=== PATIENT | female | born 1960 | race Caucasian/White ===

== ENCOUNTER 2023-07-21 17:00 | Emergency (ER) | payer OTHER ==
[~2023-07-21] VITALS: Ht 152.4 cm; Wt 45.8 kg
[2023-07-21] MEDS ORDERED: CARBAMAZEPINE200 MG PO (20:36)
[2023-07-21] MEDS ORDERED: MAGNESIUM400 M1 PO (20:36)
[2023-07-21] MEDS ORDERED: AMITRIPTYLINE H10 MG PO (20:37)
[2023-07-21] MEDS ORDERED: LEVOTHYROXINE50 MC1 PO (20:37)
[2023-07-21 20:39] LABS: INFLUENZA B NAA NEGATIVE (NEGATIVE); RESPIRATORY SYNCYTIAL VIR NAA NEGATIVE (NEGATIVE)
[2023-07-21 21:06] LABS: BASOPHILS 0.4 % (0-2); EOSINOPHILS 1.5 % (0-6); HEMATOCRIT 42.1 % (35.0-50.0); LYMPHOCYTES 13.9 % (24-44); MCH 31.1 (27-36); MCHC 33.3 g/dl (30-36); MCV 93.4 fl (81-99); MONOCYTES 5.4 % (0-12); NEUTROPHILS 78.8 % (39-80); PLATELET COUNT 294 K/uL (140-440); RBC 4.51 M/ul (4.3-5.7); RDW 13.4 (10.5-15.0)
[2023-07-21 21:15] LABS: ALBUMIN 3.6 g/dL (3.4-5.0); ALBUMIN/GLOBULIN RATIO 1.03 (1.1-2.4); ANION GAP 9.1 (7-21); BILIRUBIN, TOTAL 0.4 ng/dL (0.2-1.0); BUN/CREATININE RATIO 27.27 (6.0-28.6); CALCIUM 8.8 mg/dL (8.5-10.1); CREATININE, SERUM 0.66 mg/dL (0.55-1.02); POTASSIUM 4.1 mmol/L (3.5-5.1); PROTEIN, TOTAL 7.1 g/dL (6.4-8.2)
[2023-07-21 22:07] VITALS: BP 131/74
== END 2023-07-21 22:13 | disposition short-term general hospital (02) ==
LOC: ED 17:00 → EDBD 17:01 → ED 22:13
PROVIDERS: Family Medicine
DX: S72.012A Unspecified intracapsular fracture of left femur, initial encounter for closed fracture (principal); W19.XXXA Unspecified fall, initial encounter; Z79.899 Other long term (current) drug therapy; Z20.822 Contact with and (suspected) exposure to COVID-19
CPT/HCPCS: 36415; 73502; 80053; 85025; 87502; 99285-25; A9270; C9803; U0002

== ENCOUNTER 2023-07-27 12:25 | Inpatient (IN) | payer OTHER ==
[~2023-07-27] VITALS: Ht 152.4 cm; Wt 46.0 kg
[~2023-07-27 12:25] MED LIST: AMITRIPTYLINE H10 MG PO; CARBAMAZEPINE200 MG PO; LEVOTHYROXINE50 MC1 PO; MAGNESIUM400 M1 PO
[2023-07-27 14:36] VITALS: BP 121/68
--- NOTE | 2023-07-27 14:47 | NUR ---
Patient arrives to [place]. Vitals taken, bed weight. Pt has no IV. Pt and her son talking to registered nurse hh case manager.
--- NOTE | 2023-07-27 14:57 | NUR ---
Spoke with Re and her son. Pt arrived from [facility] post surgery by ortho to swing bed. Visited with pt and son. Gave a brochure for swing bed and discussed pt is here for rehab. She will need to be dressed in street clothing daily and up for all meals. She will be seen by PT/OT/aids. Reminded she is here as a rehab pt, not a sick pt. Pt and son state understanding. Pt lives in an RV. She uses the bathroom in the RV park as it is handicap accessable. Pt states she walked two laps in her RV before she fell. She has an indwelling castellano catheter. She states she has had a catheter for 20+ years since she has had MS. Pt uses a walker, wc, and shower chair. Son lives with her and provides assistance. Pt would like to return to walking further distance with her walker and would like to be able to walk steps into her RV. Her son is working on low income housing for them. Spoke with PT and they will see pt this afternoon.
[2023-07-27] MEDS ORDERED: KESIMPTA P20 MG/0.4 SUB-Q (15:06)
[2023-07-27] MEDS ORDERED: DOCUSATE SODIU100 MG PO (15:53)
--- NOTE | 2023-07-27 16:57 | NUR ---
MED REC COMPLETE
--- NOTE | 2023-07-27 17:05 | NUR ---
PT IS A TRANSFER FROM [place]. PT CAME IN WITH A LEFT HIP SURGICAL PROCEDURE. DRESSING IS DRY CLEAN AND INTACT. INCISION IS 6CM. PT HAS ISSUES STANDING UP ON HER OWN. NEEDS ASSISTANCE WITH A FRONT WHEEL WALKER. SHE IS CURRENTLY SITTING UP IN HER CHAIR. PT STATES THAT SHE HAS NUMBNESS IN HER LOWER EXTREMETIES. GREAT PEDAL PULSES. PT STATED THAT SHES INTERESTED IN GETTING A FLU SHOT. PT ALSO HAS A SUPRAPUBIC CATH THAT GETS CHANGED ON THE 14TH OF EVERYMONTH. SHE IS ON A 60 G CARB DIET. SHE WORKED WITH PHYSICAL THERAPY AND GOT A EVAL. SKIN IS INTACT. NO BRUISES OR ABRASIONS. [place] [facility] [place]. NO OTHER CARES OR REQUESTS AT THIS TIME. CALL LIGHT WITHIN REACH
--- NOTE | 2023-07-27 17:06 | NUR ---
Received report from Gulshan dyson RN. Per report patient has allergies to "sulfa, sulfur, flagyl, hydrocodone and oxycodone", but received oxycodone with no adverse reactions with prior hospitalization. Patient states sometimes gets "constipation", educated regarding side effects of medication vs. allergies. Patient states not necessary to add the pain medications to allergy list at this time.
--- NOTE | 2023-07-27 20:01 | NUR ---
Patient up in chair watching TV, no complaints, no distress noted, report provided by barbara RN, patient with call light in reach.
[2023-07-27 21:55] VITALS: BP 115/55
--- NOTE | 2023-07-28 00:18 | NUR ---
PATIENT SLEEPING IN CHAIR AND WANTS TO STAY THERE, GIVEN A BLANKET, LIGHTS OUT, DENIES ANY NEEDS, APPEARS COMFORTABLE, CALL LIGHT IN REACH.
--- NOTE | 2023-07-28 02:24 | NUR ---
PATIENT REMAINS A SLEEP IN CHAIR, APPEARS COMFORTABLE, NO DISTRESS AND CALL LIGHT WITHIN REACH.
--- NOTE | 2023-07-28 04:50 | NUR ---
Patient continues resting, no distress noted, appears comfortable, call light in reach.
--- NOTE | 2023-07-28 06:25 | NUR ---
Patient slept tonight in recliner, no complaints, no distress, given am medications and quickly went back to sleep. lights out, call light within reach.
--- NOTE | 2023-07-28 07:23 | NUR ---
VERBAL REPORT RECEIVED FROM GENESIS ZULETA. PT AWAKE AND ALERT, SIT RECLINED IN RECLINER. REPORTS 6/10 ACHING PAIN IN LEFT HIP. REQUEST TYLENOL.
--- NOTE | 2023-07-28 07:43 | NUR ---
PT ALERT AND ORIENTED TO SELF AND TIME ONLY.
--- NOTE | 2023-07-28 07:43 | NUR ---
TYLENOL RECIEVED ORDERED FOR PAIN, SEE eMAR. PHYSICAL ASSESSMENT COMPLETE. NEW SHIRT DONNED. PT SITS UP IN RECLINER, CALL LIGHT IN REACH. NO REQUESTS AT THIS TIME.
[2023-07-28 10:06] VITALS: BP 108/42
--- NOTE | 2023-07-28 11:51 | NUR ---
PT SITS UP IN RECLINER, TALKS ON PHONE, CALL LIGHT IN REACH, NO REQUESTS AT THIS TIME.
--- NOTE | 2023-07-28 13:06 | NUR ---
PT SPILLED COFFEE, REQUESTED MORE COFFEE AND TO HAVE HER CHICKEN CUT UP. COFFEE CLEANED UP, NEW COFFEE PROVIDED CHICKEN CUT UP TO PT PRFERENCE. PT ABLE TO FEED HER SELF WITH HER RIGHT HAND ALTHOUGH HER DEXTERITY IS LIMITED BY NUMBNESS.
--- NOTE | 2023-07-28 13:56 | NUR ---
PT EATS 100% OF HER LUNCH. PT ASSISTED TO BED FOR SUPRAPUBIC CATHETER CHANGE. PT TRANSFERS TO BED WITH 1 PERSON ASSIST. FLUID REMOVED FROM CATHETER BALLOON, CATHETER REMOVED, TIP INTACT. SITE PREPARED WITH STERILE TECHNIQUE, NEW 16F HAGEN CATHETER INSERTED, URINE RETURN NOTED, CATHETER ADVANCED 2CM, BALLOON FILLED WITH 10CC OF NS AND SEEDED. CATHETER SECURED TO RIGHT THIGH PER PT PREFERENCE. PT TOLERATED PROCEDURE WELL. PT ASSISTED TO SEMIFOWLERS, CALL LIGHT AND BELONGINGS IN REACH, NO REQUESTS AT THIS TIME. PT WATCHES TV. URINE DRAINS INTO CLOSED SYSTEM COLLECTION BAG.
--- NOTE | 2023-07-28 14:59 | NUR ---
PT STATES SHE FELT DIZZY AND BELIEVES THIS IS RELATED TO HER TEGRETOL. BECASUSE OF THIS PT ONLY TAKES 200MG AT 1500 INSTEAD OF THE ORDERED 300MG DOSE WHICH SHE DID CONFIRM IS THE SAME AMOUNT THAT SHE USUALLY TAKES. PT DENIES DIZZINESS AT THIS TIME. SON IN ROOM VISITING.
--- NOTE | 2023-07-28 17:03 | NUR ---
PT SITS UP IN BED, AWAKE AND ALERT, TALKS ON CELL PHONE. CALL LIGHT IN REACH, NO REQUESTS AT THIS TIME.
--- NOTE | 2023-07-28 18:31 | NUR ---
PT SITS UP IN BED, FINISHED DINNER, 100%, TOLERATES THIS WELL. SON IN ROOM VISITING. CALL LIGHT IN REACH NO REQUESTS AT THIS TIME.
--- NOTE | 2023-07-28 19:10 | NUR ---
SHIFT REPORT RECEIVED FROM LITZY AGUIRRE AT BEDSIDE. pt AWAKE AND RESTING IN BED, SON ALSO IN ROOM. pt DENIES NEEDS OR CONCERNS VERBALIZED, CALL LIGHT IN REACH. SUPRAPUBIC CATHETER PATENT, WNL.
[2023-07-28 20:31] VITALS: BP 101/60
--- NOTE | 2023-07-28 20:35 | NUR ---
INTO DO PATIENTS VITALS. PATIENT CURRENTLY WATCHING TV RESTING. WATER REFILLED. CALL LIGHT WITHIN REACH. PATIENT DENIES ANY OTHER CARES.
--- NOTE | 2023-07-28 22:15 | NUR ---
ASSESSMENT COMPLETE, SCHEDULED MEDS GIVEN-SEE EMAR. pt AWAKE AND RESTING IN BED. DENIES PAIN, DIZZINESS, SOB-ECT. ALSO DENIES NAUSEA. pt A/OX4, BED ALARM ON FOR SAFETY. DRESSING TO LEFT HIP WNL, INTACT WITH SCANT RED SPOT LIKE SHADOWING, OLD IN NATURE/COLOR. SITE AROUND DRESSING WNL. CATH CARE DONE, NO FURTHER NEEDS OR CONCERNS. CALL LIGHT IN REACH.
--- NOTE | 2023-07-28 23:29 | NUR ---
pt RESTING IN BED, EYES CLOSED. ON RA, RR EVEN AND UNLABORED, NO DISTRESS NOTED. BED ALRM ON ADN CALL LIGHT IN REACH.
--- NOTE | 2023-07-29 00:48 | NUR ---
pt RESTING ON HER RIGHT SIDE IN BED, ON RA. RR EVEN AND UNLABORED. NO DISTRESS NOTED. CALL LIGHT IN REACH AND BED ALARM ON FOR SAFETY.
--- NOTE | 2023-07-29 01:00 | NUR ---
pt RECEIVED FLU VACCINE EARLIER ON DAYSHIFT PER EMAR, EMAR UPDATED AND FLU VACCINE DC'D PER PROTOCOL.
--- NOTE | 2023-07-29 01:35 | NUR ---
rounded on pt, pt resting quietly in bed with eyes closed. on ra, rr even and unlabored. pt awoke to voice, states calmy-"sometimes when i'm asleep, i forget where i'm at". pt a/o to all but by date. vs remain stable, hr remains a little tachy. call light inr each, pt denies pain. also denies needing assistance with position changes. call light in reach and castellano emptied.
[2023-07-29 01:38] VITALS: BP 103/52
--- NOTE | 2023-07-29 03:50 | NUR ---
bed alarm going off, pt just turning self in bed, able to turn independently. prn med given for constipation, austen care done and clean attends in place. small skin tear noted to right buttocks, site cleaned with wound cleanser and allevyn in place. photo consent taken and photos obtained, see chart. pt allows pillow to be placed under left side for comfort, hip alignment obtained. no bleeding noted from skin tear, appears older in nature. deneis additional needs, call light in reach.
--- NOTE | 2023-07-29 05:31 | NUR ---
scheduled thyroid medication given-see emar. i&o's collected. bed alarm on and call light in reach. pt removed pillow from hip, turns self in bed independently.
--- NOTE | 2023-07-29 07:09 | NUR ---
VERBAL REPORT RECEIVED FROM GENESIS DURBIN. PT RESTS IN BED WITH EYES CLOSED RESP EVEN AND UNLABORED.
--- NOTE | 2023-07-29 09:03 | NUR ---
VERBAL ORDERS FROM DR KINGSTON TO REMOVE PTS SURGICAL DRESSING AND SHOWER PRN. ORDERS ENTERED, REPEAT BACK PERFORMED.
--- NOTE | 2023-07-29 09:30 | NUR ---
PATIENT IN RECLINER, VITALS AND I/O'S COMPLETED. HAGEN DRAINED AND DOCUMENTED. PT HAS NO OTHER REQUESTS AT THIS TIME, CALL LIGHT WITHIN REACH.
[2023-07-29 09:34] VITALS: BP 119/53
--- NOTE | 2023-07-29 11:58 | NUR ---
DISCUSSED WITH PT NO BM SINCE 07/24/23. PT REPORTS SHE REGULARLY GOES DAY WITHOUT A BM. STATES SHE SOMETIMES USES PRUNE JUICE TO ACHIEVE A BM. PRUNE JUICE PROVIDED.
--- NOTE | 2023-07-29 15:24 | NUR ---
DRESSING OVER LEFT UPPER ANTERIOR THIGH REMOVED. INCISION WELL APPROXIMATED, BRISA INTACT NO DRAINAGE NOTED. INCISION CLEANSED WITH NS AND PATTED DRY. LIBBY WOUND SKIN PINK, DRY AND INTACT. PT TOLERATED WELL.
--- NOTE | 2023-07-29 17:41 | NUR ---
THIS RN TO PT ROOM TO OFFER SHOWER AFTER DINNER. PT STATES "NO I DON'T WANT TO RIGHT NOW, I AM TIRED" WITH EYES CLOSED AND LAYING BACK IN CHAIR. PT STATES NO FURTHER NEEDS AT THIS TIME, CALL LIGHT WITHIN REACH.
--- NOTE | 2023-07-29 18:25 | NUR ---
HOURLY ROUNDING. THIS RN CAME INTO ROOM, PT RESTING WITH EYES CLOSED AND LEANING FAR TO RIGHT SIDE IN CHAIR. PT AWAKENS TO TOUCH, STATES "I NEED TO USE THE BATHROOM AND THEN I WOULD LIKE TO GO TO BED". PT OFFERED A SHOWER AGAIN, PT REFUSED. PT UP TO BSC WITH X1 PERSON ASSIST AND FWW. PT HAS LARGE BM, SMALL BM IN BRIEFS. NEW BRIEFS PROVIDED, LIBBY CARE PROVIDED. PT AMBULATES X2 ASSIST WITH FWW BACK TO BED. PT STATES NO FURTHER NEEDS AT THIS TIME. CALL LIGHT WITHIN REACH, BED RAILS UP.
--- NOTE | 2023-07-29 18:32 | NUR ---
IN WITH PT AND RN CAYETANO TO ASSIST PT BACK TO BED. PT REPORTS NAUSEA AND FEELING HOT. COOL WASH CLOTH APPLIED TO PT'S FOREHEAD. PO ZOFRAN ADMINISTERED SL PER EMAR. CALL LIGHT IN REACH.
--- NOTE | 2023-07-29 19:31 | NUR ---
REPORT RECEIVED FROM DAY SHIFT RN. PT RESTING IN BED. FAMILY AT BEDSIDE. SAFETY PRECAUTIONS MAINTAINED. CALL LIGHT WITHIN REACH. WILL CONTINUE TO MONITOR.
[2023-07-29 20:21] VITALS: BP 135/65
--- NOTE | 2023-07-29 20:33 | NUR ---
PT ASSESSED AND MEDICATIONS GIVEN. SUPRAPUBIC CATHETER IN PLACE, DRAINING WELL PER GRAVITY, GOOD OUTPUT NOTED. LEFT HIP SITE INTACT. PT'S SON AT BEDSIDE. SAFETY PRECAUTIONS MAINTAINED. CALL LIGHT WITHIN REACH. WILL CONTINUE TO MONITOR.
--- NOTE | 2023-07-30 06:05 | NUR ---
PT RESTED WELL THROUGHOUT THE SHIFT. VSS. PT SBA WITH WALKER. SUPRAPUBIC CATHETER IN PLACE. GOOD OUTPUT NOTED. SAFETY PRECAUTIONS MAINTAINED. CALL LIGHT WITHIN REACH. WILL CONTINUE TO MONITOR.
--- NOTE | 2023-07-30 07:11 | NUR ---
VERBAL REPORT RECEIVED FROM GENESIS ROSAS. PT RESTS IN BED WITH EYES CLOSED, RESP EVEN AND UNLABORED.
--- NOTE | 2023-07-30 09:20 | NUR ---
Faxed auth sheet to Trisha in admitting. Faxed reference sheet, H&P with admit date, PT eval, plan of care, and notes, CM eval, and RN eval to Jonathan at [facility] as requested.
--- NOTE | 2023-07-30 10:30 | NUR ---
Spoke with Re. She states she is doing well. She is weak and states her BP is low. She feels this rehab program is working well for her.
[2023-07-30 10:44] VITALS: BP 86/54
[2023-07-30 10:50] VITALS: BP 93/38
--- NOTE | 2023-07-30 10:50 | NUR ---
PATIENT SITTING UP IN CHAIR. VITALS AND I&O'S CHARTED. LINENS CHANGED. BP LOW, RN NOTIFIED. CALL LIGHT IN REACH. NO FURTHER NEEDS AT THIS TIME.
--- NOTE | 2023-07-30 11:43 | NUR ---
JASE KUHN REPORTS BP LA 86/54 AND RA 93/38. MANNUAL BP TAKEN WITH DOPPLER. LA 101/65, RA 100/60. PT ASYMPTOMATIC. HX OF BP'S REVIEWED PT RUNS SBP 100-110S OVER DBP 50-60'S WITH OCCASIONAL SBP 120-130'S.
--- NOTE | 2023-07-30 12:11 | NUR ---
PT UP IN CHAIR. IN GOOD SPIRITS. I EXERCISED MINISTRY OF PRESENCE PT TALKED OF BECKIE HISTORY AND HOPES FOR WORLD HEALING. STATED SHE WAS TIRED FROM PT AND APPRECIATIVE OF HELP TO HEAL. PRAYED FOR AWARENESS OF DIVINE PRESENCE AND RELEIF FROM DISCOMFORT.
--- NOTE | 2023-07-30 14:00 | NUR ---
PATIENT SITTING UP IN CHIAR WATCHING TV AT THIS TIME. I&O'S CHARTED. CALL LIGHT IN REACH. NO FURTHER NEEDS AT THIS TIME.
[2023-07-30 14:27] VITALS: BP 106/46
--- NOTE | 2023-07-30 16:22 | NUR ---
PT SITS UP IN RECLINER, WATCHES TV, VISITS WITH SON IN ROOM. SP HAGEN CATHETER DRAINS CLEAR, YELLOW URINE. CALL LIGHT IN REACH, NO REQUESTS AT THIS TIME.
--- NOTE | 2023-07-30 18:26 | NUR ---
PATIENT SITTING UP IN CHAIR WATCHING TV. I&O'S CHARTED. CALL LIGHT IN REACH. NO FURTHER NEEDS AT THIS TIME.
--- NOTE | 2023-07-30 19:34 | NUR ---
REPORT RECEIVED FROM DAY SHIFT RN. PT SITTING IN CHAIR. SAFETY PRECAUTIONS MAINTAINED. CALL LIGHT WITHIN REACH. WILL CONTINUE TO MONITOR.
[2023-07-30 20:33] VITALS: BP 115/58
--- NOTE | 2023-07-30 20:48 | NUR ---
PT ASSESSED AND MEDICATIONS GIVEN. PT TRANSFERRED BACK TO BED. PT UP X1 WITH WALKER. SUPRAPUBIC CATHETER IN PLACE. GOOD OUTPUT NOTED. VSS. SAFETY PRECAUTIONS MAINTAINED. CALL LIGHT WITHIN REACH. WILL CONTINUE TO MONITOR.
--- NOTE | 2023-07-31 06:02 | NUR ---
PT RESTED WELL DURING THE SHIFT. PT UP X1 WITH WALKER. VSS. SUPRAPUBIC CATHETER INTACT AND DRAINING WELL PER GRAVITY. GOOD OUTPUT NOTED. SAFETY PRECAUTIONS MAINTAINED. CALL LIGHT WITHIN REACH. WILL CONTINUE TO MONITOR.
--- NOTE | 2023-07-31 07:11 | NUR ---
VERBAL REPORT RECEIVED FROM GENESIS CHATMAN.
--- NOTE | 2023-07-31 07:16 | NUR ---
PT SUPINE IN BED, AWAKE, DROWSY, STATES SHE WOULD LIKE TO CONTINUE TO REST. CALL LIGHT IN REACH, NO REQUESTS AT THIS TIME.
[2023-07-31 09:22] VITALS: BP 101/56
--- NOTE | 2023-07-31 09:26 | NUR ---
PATIENT IN BED RESTING WITH EYES CLOSED. VITALS AND I&O'S CHARTED. CALL LIGHT IN REACH. NO FURHTER NEEDS AT THIS TIME.
--- NOTE | 2023-07-31 10:24 | NUR ---
PT RESTS IN BED, STATES SHE WOULD LIKE TO TAKE A NAP. SHOWER OFFERED PT STATES SHE WOULD LIKE TO DO THAT LATER. CALL LIGHT IN REACH, NO REQUESTS AT THIS TIME.
--- NOTE | 2023-07-31 13:55 | NUR ---
PATIENT WORKING WITH OT AT THIS TIME. I&O'S CHARTED. CALL LIGHT IN REACH. NO FURTHER NEEDS AT THIS TIME.
--- NOTE | 2023-07-31 16:18 | NUR ---
Spoke with pt. She states she worked with PT and OT today. She is tearful. She denies anyone upset her and then states its from watching a sad show. She feels she is doing well with therapy. Updated pt their will be and IDT meeting on and he son is invited to discuss goals of care if he would like to be here at 9 am. Spoke with PT/OT and reminded I will need documentation to send to request further auth by tomorrow or . Betty stated pt was tearful when she worked with her and pt had stated she was "overwhelmed".
--- NOTE | 2023-07-31 18:30 | NUR ---
PATIENT SITTING UP IN CHAIR WATCHING TV. I&O'S CHARTED. CALL LIGHT IN REACH. NO FURTHER NEEDS AT THIS TIME.
--- NOTE | 2023-07-31 19:05 | NUR ---
REPORT RECEIVED FROM GENESIS AGUIRRE. pt UP IN CHAIR WITH EYES CLOSED, BREATHING UNLABORED. NO DISTRESS NOTED.
--- NOTE | 2023-07-31 19:25 | NUR ---
RESUME PATIENT CARE FROM GALINA KUHN. ASSISTED PATIENT FROM CHAIR TO BED USING WALKER. ICE WATER REFRESHED. DENIES FURTHER NEEDS AT THIS TIME.
[2023-07-31 21:39] VITALS: BP 104/55
--- NOTE | 2023-07-31 22:02 | NUR ---
pt RESTING IN BED AWAKE. ASSESSMENT COMPLETE. pt DENIES PAIN. VS STABLE. pt PROVIDED WITH SNACK AND ICE WATER. CALL LIGHT IN REACH.
--- NOTE | 2023-08-01 | NUR ---
pt RESTING IN BED WITH EYES CLOSED, SNORING. LIGHTS OFF IN ROOM. CALL LIGHT AND PERSONAL SUPPLIES IN REACH.
--- NOTE | 2023-08-01 02:46 | NUR ---
pt RESTING IN BED WITH EYES CLOSED. BREATHING EQUAL AND UNLABORED. LIGHTS OFF IN ROOM.
--- NOTE | 2023-08-01 06:00 | NUR ---
pt SLEEPING, SNORING. HEAD COVERED WITH BLANKETS BY pt. NO DISTRESS NOTED.
--- NOTE | 2023-08-01 06:57 | NUR ---
pt SLEEPING, AWAKENS TO VOICE. pt RATES PAIN 6/10, PRN PAIN MEDICATION ADMINISTERED. SUPRAPUBIC CATHETER EMPTIED. CALL LIGHT IN REACH. WARM BLANKET PROVIDED.
--- NOTE | 2023-08-01 07:32 | NUR ---
recieved shift report from rn. patient is currently resting. even and unlabored breathing noticed. no cares needed at this time . call light within reach
[2023-08-01 08:00] VITALS: BP 105/58
--- NOTE | 2023-08-01 08:30 | NUR ---
Update with Dr. Mclaughlin in 08 meeting. Discussed with team, pt has been tearful intermittently. PT and OT states pt has been tearful at therapy workouts at times. plans on seeing pt today.
--- NOTE | 2023-08-01 08:43 | NUR ---
PTY IS CURRENTLY IN BED EATING BREAKFAST. PT STATES HER PAIN LEVEL IS AT A 2 AFTER PAIN MEDS WERE GIVEN THIS MORNING. ASSESSMENT COMPLETE. NO ABNORMAL FINDINGS. PT IS ON RA AND A+O. NO OTHER CARES NEEEDED OR REQUESTED AT THIS TIME. CALL LIGHT WITHIN REACH
--- NOTE | 2023-08-01 10:10 | NUR ---
Pt resting in chair. Denies needs. Feeling better today.
--- NOTE | 2023-08-01 10:34 | NUR ---
PT IS IN BED WATCHING TV WHEN ASKED IF SHE NEEDED ANYTHING PT STATED SHE WAS FINE. NO OTHER CARES NEEDED AT THIS TIME CALL LIGHT WITHIN REACH
--- NOTE | 2023-08-01 11:19 | NUR ---
PATIENT IS ON A REGULAR DIET. SHE DOES NOT HAVE ANY CHEWING OR SWALLOWING PROBLEMS. APPETITE IS GOOD. SHE DOES NOT EAT PORK DUE TO ALEVISM REASONS. SHE STATES SHE HAS AN ALLERGY TO SULFUR SO SHE CANNOT TOLERATE EGGS ON THEIR OWN BUT CAN EAT FOODS MADE WITH EGGS. THESE ARE NOTED IN THE MEAL IQ. I PROVIDED HER WITH A REGULAR DIET MENU SINCE SHE DIDN'T HAVE THE CORRECT MENU IN HER ROOM. SHE HAS NO OTHER NUTRITION QUESTIONS OR CONCERNS AT THIS TIME.
--- NOTE | 2023-08-01 11:19 | NUR ---
PT IS CURRENTLY IN ROOM WITH PHYSICAL THERAPY. THERAPIST HAD CONCERNS ABOUT PT BP. WILL CONTINUE TO MONITOR.
--- NOTE | 2023-08-01 11:42 | NUR ---
PHYSICAL THERAPIST CAME TO REPORT THAT PT STATES SHE WAS FEELING DROWSY AND "DRUNK" POSSIBLY RELATED TO MEDICATION GIVEN. AFTER ASESSING THE SITUATION ZOFRAN WAS GIVEN.
--- NOTE | 2023-08-01 11:46 | NUR ---
UPDATED DR ON PATIENT STATUS. DR SAID HE WILL REVIEW HER CURRENT ORDERS
--- NOTE | 2023-08-01 14:53 | NUR ---
PT IS WITH OT GETTING A SHOWER.
--- NOTE | 2023-08-01 15:45 | NUR ---
PER PATIENT REQUEST PATIENT STATED SHE DOES NOT WANT HER TEGRITOL. SEE EMAR
--- NOTE | 2023-08-01 17:00 | NUR ---
PT HAS A 5 CM BLANCHABLE ERYTHEMA ON RIGHT BUTTOCK. THIS RN REAPPLIED ALEVYN. PT IS CURRENTLY EATING. NO OTHER CARES REQUESTED OR CONCERNS AT THIS TIME CALL LIGHT WITHIN REACH
--- NOTE | 2023-08-01 17:28 | NUR ---
PATIENT HERE FOR TRANSITIONAL CARE PROGRAM FOLLOWING POST OP L HIP FX ON 07/22. MAIN GOALS: PT/OT, PAIN MANAGEMENT. HX OF MS WITH CHRONIC R SIDED WEAKNESS, TRIGEMINAL NEURALGIA, CHRONIC MEDS. A+O, ON ROOM AIR, LUNGS CLEAR, BOWEL TONES ACTIVE. PT STATES LAST BM 07/29, DECLINES BM REGIMEN. 1PA WITH FWW. L HIP HAS 4 BRISA CARLEY, C/D/I, WELL APPROXIMATED WITH NO DRAINAGE. R SIDE BUTTOCK HAS 5CM ERYTHEMA, BLANCHABLE, ALLEVYN COVERING CHANGED 08/01. CHRONIC SUPRAPUBIC CATHETER D/T MS, CHANGED 07/28. PRN OXY AND TYLENOL FOR PAIN. NO IV ACCESS. PLAN TO DC HOME WITH SON. CALLS APPROPRIATELY.
--- NOTE | 2023-08-01 19:22 | NUR ---
PATIENT UP IN CHAIR WATCHING TV. I&O'S CHARTED. CALL LIGHT IN REACH. NO FURTHER NEEDS AT THIS TIME.
--- NOTE | 2023-08-01 19:25 | NUR ---
patient up in chair watching TV, no complaints, Report provided by dayshisalbador RN. Call light within reach.
[2023-08-01 20:28] VITALS: BP 112/53
--- NOTE | 2023-08-01 21:26 | NUR ---
Patient without complaints of pain, CMS to lower legs bilat intact, incision to outer thigh of left leg intact with carissa, dry, clean. SP cath intact. patient watching TV and up in recliner. VSS, call light within reach.
--- NOTE | 2023-08-01 22:06 | NUR ---
Called to room and assisted patient to bed from chair, gait unsteady and slow, only requiring SBA, Has lights out and call light in reach.
--- NOTE | 2023-08-02 00:56 | NUR ---
patient appears a sleep, appears comfortable, lights out and call light in reach.
--- NOTE | 2023-08-02 01:57 | NUR ---
patient awake, having difficulty falling back a sleep. no complaints of pain, no noted distress, lights out, call light in reach.
--- NOTE | 2023-08-02 04:12 | NUR ---
Patient lying with eyes closed, appears comfortable, no distress, RR-[id number]. call light in reach.
--- NOTE | 2023-08-02 05:42 | NUR ---
Patient sleeping between care. No complaints, Has required no pain medication, SP cath intact draining QS urine. Left outer thigh incision remains intact with carissa. CMS intact. Has had no c/o dizziness this shift. Has been a/o. Wanting to go back to sleep, lights out and call light in reach.
--- NOTE | 2023-08-02 07:34 | NUR ---
RECEIVED REPORT FROM RN WOUND CARE RN. PATIENT IS RESTING IN BED WITH EYES CLOSED AND RESPIRATIONS EVEN AND UNLABORED.
--- NOTE | 2023-08-02 09:59 | NUR ---
EXERCISED MINISTRY OF PRESENCE PT TALKED OF HOBBIES AND INTERESTS. PROVIDED WORD PUZZLE BOOKS. PRAYED SILENTLY FOR HINDU AND ABIDING PEACE.
--- NOTE | 2023-08-02 10:50 | NUR ---
PATIENT IS GETTING OUT OF BED WITH PT AND STATED NO NEEDS AT THIS TIME.
--- NOTE | 2023-08-02 11:31 | NUR ---
UR NOTE: REQUEST FOR SWINGBED AUTH EXTENSION SENT BY [employer] TO ADEEL Roberto [phone] AND [facility] REQUEST LINE [phone]. SENT UPDATED CHART NOTES. CONFIRMED 104PM AND 103PM.
--- NOTE | 2023-08-02 11:48 | NUR ---
PATIENT SITTING UPRIGHT IN THE RECLINER. ASKED HOW PT WENT AND PATIENT STATING "IT WAS HARDER THAN I THOUGHT IT WOULD BE". PATIENT SAID SHE WAS ABLE TO WALK TO THE HALLWAY AND SIT IN A WHEELCHAIR USING A WALKER AND PT AT PATIENTS SIDE. PATIENT SAID SHE WAS ABLE TO DO SOME STAIRS BUT WAS STRUGGLING TO LIFT HER LEG. PATIENT HAVING 4/10 PAIN THAT FEELS ACHEY AND SHE WOULD LIKE PAIN MEDICATION IF THAT IS AVAILABLE. PATIENT GOT FRESH WATER AND STATED NO FURTHER NEEDS AT THIS TIME. PATIENT CALL LIGHT AND PERSONAL BELONGINGS WITHIN REACH.
[2023-08-02 12:12] VITALS: BP 109/48
--- NOTE | 2023-08-02 13:10 | NUR ---
PATIENT SITTING UPRIGHT IN THE RECLINER WATCHING TV. PATIENT MEAL TRAY CLEARED. PATIENT STATED NO FURTHER NEEDS AT THIS TIME. CALL LIGHT AND PERSONAL BELONGINGS ARE WITHIN REACH.
--- NOTE | 2023-08-02 16:51 | NUR ---
PATIENT SITTING UPRIGHT IN RECLINER. PATIENT STATED SHE WAS SNIFFLING FREQUENTLY AND KLEENEX BOX WAS PLACED ON HER BEDSIDE TABLE. WHEN ASKED ABOUT PAIN, PATIENT STATED SHE IS EXPERIENCING 0/10 PAIN. PATIENT STATED NO FURTHER NEEDS AT THIS TIME. CALL LIGHT AND PERSONAL BELONGINGS ARE WITHIN REACH.
--- NOTE | 2023-08-02 19:25 | NUR ---
PATIENT UP IN CHAIR, WATCHING TV, APPEARS COMFORTABLE WITH NO COMLAINTS, REPORTED PROVIDED BY YUE RN, PATIENT CALL LIGHT WITHIN REACH.
[2023-08-02 20:10] VITALS: BP 120/66
--- NOTE | 2023-08-02 20:45 | NUR ---
PATIENT ASSISTED TO BED BY LAUNDRY OR DRY CLEANERS COUNTER CLERK, GAIT UNSTEADY, MILD DICOMFORT TO HIP RATED AT 2 AND GIVEN TYLENOL. INCISION TO LEFT OUTER THIGH INTACT WITH BRISA AND OPEN TO AIR. CMS TO LOWER EXTREMETIES BILAT INTACT. VSS, PATIENT WANTING TO GO TO SLEEP, NIGHTTIME NEDICATINS GIVEN, LIGHTS OUT AND CALL LIGHT IN REACH.
--- NOTE | 2023-08-02 23:32 | NUR ---
PATIENT RESTING WITH EYES CLOSED, NO DISTRESS, APPEARS COMFORTABLE, CALL LIGHT IN REACH.
--- NOTE | 2023-08-03 02:00 | NUR ---
Patient sleeping with eyes closed, no distress noted, call light in reach.
--- NOTE | 2023-08-03 04:41 | NUR ---
Patient continues to sleep, slight snore with respirations, appears comfortable, lights out and call light within reach.
--- NOTE | 2023-08-03 06:16 | NUR ---
Patient continues sleeping with eyes closed, no complaints, no distress, slept through the night, call light in reach.
--- NOTE | 2023-08-03 07:30 | NUR ---
REPORT FROM [facility] TEACHER RN. PATIENT LAYING IN BED WITH EYES CLOSED. RESPIRATIONS ARE EQUAL AND UNLABORED. CALL LIGHT AND PERSONAL BELONGINGS ARE WITHIN REACH.
[2023-08-03 09:08] VITALS: BP 112/56
--- NOTE | 2023-08-03 10:12 | NUR ---
PATIENT WORKING WITH OT. NOW SITTING UPRIGHT IN THE RECLINER. PATIENT REQUESTING A SENNOSIIDE TABLET TO HELP HAVE A BOWEL MOVEMENT. PATIENT STATED NO FURTHER NEEDS AT THIS TIME.
--- NOTE | 2023-08-03 10:46 | NUR ---
UR NOTE: RECEIVED EXTENDED AUTH REF#[id number] EXTENDED TO 14 DAYS 07/26/23-08/10/23.
--- NOTE | 2023-08-03 12:54 | NUR ---
PATIENT SITTING UP IN THE RECLINER AFTER EATING 100% OF LUNCH. PATIENT STATED THEY WERE IN NO PAIN AND IS VERY TIRED AFTER WORKING WITH OT THIS MORNING. PATIENT STATED THEY WERE STILL FEELING CONSTIPATED AFTER BEING GIVEN SENNA THIS MORNING. PATIENT STATED NO FURTHER NEEDS AT THIS TIME. PATIENT CALL LIGHT AND PERSONAL BELONGINGS ARE WITHIN REACH.
--- NOTE | 2023-08-03 14:19 | NUR ---
PATIENT SITTING UPRIGHT IN THE RECLINER. FINISHED WITH PT. PATIENT HAD ONE MEDIUM BOWEL MOVEMENT. 750 ML OF PALE YELLOW URINE EMPTIED FROM THE HAGEN BAG. PATIENT STATED NO PAIN. PATIENT INCISION SITE ON LEFT HIP WAS DRY AND EDGES APPROXIMATED. PATIENT STATED NO FURTHER NEEDS AT THIS TIME. PATIENT CALL LIGHT AND PERSONAL BELONGINGS WITHIN REACH.
--- NOTE | 2023-08-03 17:50 | NUR ---
PATIENT SITTING UPRIGHT IN THE RECLINER WITH PATIENTS SONS AT BEDSIDE. PATIENT SUPRAPUBIC CATHETER EMPTIED OF 500 ML OF YELLOW URINE. PATIENT NOW EATING DINNER. PATIENT STATED NO FURTHER NEEDS AT THIS TIME. PATIENT CALL LIGHT AND PERSONAL BELONGINGS ARE WITHIN REACH.
[2023-08-03 19:56] VITALS: BP 120/62
--- NOTE | 2023-08-03 19:57 | NUR ---
pATIENT SITTING UP IN RECLINER, REPORT PROVIDED BY DAY SHIFT RN, PATIENT DENIES PAIN, VSS, L OUTER THIGH INCISION INTACT, AND DRY WITH BRISA. CMS INTACT, CONTINUES TO HAVE SIGNIFICANT WEAKNESS TO LOWER LEGS. SP CATH INTACT AND FRAINING CLEAR YELLOW URINE, ASSISTED PATIENT WITH USE OF FWW TO BED. AMBULATED SHORT DISTANCE AND GAIT VERY UNSTEADY. IS IN BED NOW WATCHING TV, CALL LIGHT IN REACH.
--- NOTE | 2023-08-03 22:04 | NUR ---
PATIENT RESTING WITH EYES CLOSED, APPEARS COMFORTABLE, CALL LIGHT WITHIN REACH.
--- NOTE | 2023-08-04 00:36 | NUR ---
Patient continues to sleep, appears comfortable, no distress, RR-18, call light within reach.
--- NOTE | 2023-08-04 01:59 | NUR ---
PATIENT CONTINUES SLEEPING, RESP EVEN UNLABORED WITH AUDIBLE LIGHT SNORE, APPEARS COMFORTABLE, CALL LIGHT IN REACH.
--- NOTE | 2023-08-04 04:04 | NUR ---
Patient sleeping, appears comfortable, has had no complaints. call light in reach.
--- NOTE | 2023-08-04 05:47 | NUR ---
patient has slept well through the night, no complaints of pain, no noted distress, left leg incision intact and dry, CMS intact. Woke for morning medication and quickly back to sleep. call light in reach.
--- NOTE | 2023-08-04 07:19 | NUR ---
RECEIVED REPORT FROM E M ASSEMBLER RN. PATIENT RESTING WITH EYES CLOSED. BREATHING IS EVEN AND UNLABORED.
[2023-08-04 08:02] VITALS: BP 101/48
--- NOTE | 2023-08-04 08:59 | NUR ---
PATIENT HELPED BAACK TO THE RECLINER AFTER HAVING A BOWEL MOVEMENT. PATIENTS MORNING MEDICATIONS GIVEN BUT SHE REQUESTED TO TAKE THE SENNA TABLET THIS EVENING. PATIENT HAS ALEVYN ON RIGHT BUTTOCK. PATIENT ASSESSMENT COMPLETE. PATIENT EXPERIENCING WEAKNESS ON THE RIGHT UPPER AND LOWER EXTREMITITES. PATIENT EXPRESSED SHE THINKS SHE MAY BE EXPERIENCING AN MS FLAIR UP DUE TO THE STRESS OF THE LEFT HIP FRACTURE. PATIENT STATED PAIN ON THE LEFT HEEL BUT THAT HAPPENS VERY FREQUENTLY. PATIENT DID NOT WANT ANY PAIN MEDICATIONS BECAUSE IT MAKES HER DROWSY. PATIENT STATED NO FURTHER NEEDS AT THIS TIME. CALL LIGHT AND PERSONAL BELONGINGS ARE WITHIN REACH.
[2023-08-04 15:38] LABS: BASOPHILS 0.6 % (0-2); EOSINOPHILS 1.7 % (0-6); HEMATOCRIT 38.7 % (35.0-50.0); LYMPHOCYTES 22.3 % (24-44); MCHC 33.6 g/dl (30-36); MONOCYTES 6.4 % (0-12); PLATELET COUNT 459 K/uL (140-440); RBC 4.07 M/ul (4.3-5.7); RDW 14.1 (10.5-15.0)
[2023-08-04 16:01] LABS: ALBUMIN 3.5 g/dL (3.4-5.0); ALBUMIN/GLOBULIN RATIO 1.06 (1.1-2.4); ANION GAP 7.4 (7-21); BILIRUBIN, TOTAL 0.3 ng/dL (0.2-1.0); CALCIUM 8.8 mg/dL (8.5-10.1); CREATININE, SERUM 0.75 mg/dL (0.55-1.02); POTASSIUM 4.4 mmol/L (3.5-5.1); PROTEIN, TOTAL 6.8 g/dL (6.4-8.2)
--- NOTE | 2023-08-04 17:46 | NUR ---
PATIENT SITTING UPRIGHT IN THE RECLINER. PATIENT STATED NO PAIN. PATIENT WITH MALDOROUS YELLOW URINE FROM THE SUPRAPUBIC CATHETER. MD NOTIFIED AND NO NEW ORDERS AT THIS TIME. PATIENT STATED NO FURTHER NEEDS AT THIS TIME. CALL LIGHT AND PERSONAL BELONGINGS ARE WITHIN REACH.
[2023-08-04 17:53] VITALS: BP 131/57
--- NOTE | 2023-08-04 17:54 | NUR ---
PATIENT ASSISTED BACK TO BED WITH FRONT WHEELED WALKER AND TWO PERSON ASSIST. VITAL SIGNS TAKEN. PATIENT STATED NO FURTHER NEEDS AT THIS TIME. CALL LIGHT AND PERSONAL BELONGINGS ARE WITHIN REACH.
--- NOTE | 2023-08-04 19:46 | NUR ---
REPORT RECEIVED FROM DAY SHIFT RN. PT LYING IN BED ALERT AND ORIENTED. DENIES NEEDS. WHITE BOARD UPDATED. CALL LIGHT IN REACH.
[2023-08-04 20:34] VITALS: BP 115/68
--- NOTE | 2023-08-04 21:12 | NUR ---
EVENING ASSESSMENT COMPLETE. SCHEDULED MEDS ADMIN PER EMAR. PT DENIES PAIN OR NAUSEA. VS AND I&O OBTAINED, WNL. SUPRAPUBIC CATH PATENT WITH QS YELLOW URINE. FOUL ODOR AND SEDIMENT NOTED. LEFT HIP INCISION WELL APPROXIMATED WITH BRISA INTACT. NO REDNESS OR DRAINAGE NOTED. ASSISTED TO REPOSITION IN BED. PT DENIES QUESTIONS OR CONCERNS. CALL LIGHT IN REACH.
--- NOTE | 2023-08-05 00:07 | NUR ---
CALL LIGHT ANSWERED. PT SPILLED COFFEE ON LINENS. CLEAN LINENS PROVIDED. ASSISTED PT TO REPOSITION. NO FURTHER NEEDS.
--- NOTE | 2023-08-05 03:21 | NUR ---
PT RESTING IN BED WITH EYES CLOSED. RESPIRATIONS EVEN. CALL LIGHT IN REACH.
--- NOTE | 2023-08-05 06:04 | NUR ---
PT RESTING IN BED SNORING SOFTLY. EYES CLOSED. RESPIRATIONS EVEN. I&O OBTAINED. SUPRAPUBIC CATH PATENT WITH QS YELLOW URINE. FOUL ODOR AND SEDIMENT NOTED.
--- NOTE | 2023-08-05 07:30 | NUR ---
RECEIVED REPORT FROM HUMAN RESOURCES OFFICE ASSISTANT RN. PATIENT IS LYING IN BED AWAKE AND ALERT. PATIENT STATED NO FURTHER NEEDS AT THIS TIME. CALL LIGHT AND PERSONAL BELONGINGS ARE WITHIN REACH.
[2023-08-05 10:37] VITALS: BP 120/59
--- NOTE | 2023-08-05 11:15 | NUR ---
PATIENT SITTING COMFORTABLY IN THE HOSPITAL BED. PATIENT WATCHING TV. WATER FILLED. VITALS SIGNS, INTAKE AND OUTPUT, AND PATIENT ASSESSMENT COMPLETE. PATIENT STATED NO FURTHER NEEDS AT THIS TIME. CALL LIGHT AND PERSONAL BELONGINGS ARE WITHIN REACH.
--- NOTE | 2023-08-05 13:23 | NUR ---
PATIENT SITTING UPRIGHT IN THE RECLINER AND WATCHING TV. PATIENT STATED NO FURTHER NEEDS AT THIS TIME. CALL LIGHT AND PERSONAL BELONGINGS WITHIN REACH.
--- NOTE | 2023-08-05 16:15 | NUR ---
PATIENT SITTING UPRIGHT IN THE RECLINER WATCHING TV. CARBEMAZEPIME ADMINISTERED PER ORDER ON THE EMAR. PAIN ASSESSMENT SHOWED 0/10. WHEN ASSESSING THE SURGICAL SITE, IT SHOWED FOUR BRISA AND WELL APPROXIMATED MARGINS. INTAKE AND OUTPUT RECORDED. PATIENT STATED NO FURTHER NEEDS AT THIS TIME. CALL LIGHT AND PERSONAL BELONGINGS ARE WITHIN REACH.
--- NOTE | 2023-08-05 19:37 | NUR ---
REPORT RECEIVED FROM DAY SHIFT RN. PT SITTING IN RECLINER ALERT AND ORIENTED. 2PA WITH FWW BACK TO BED. GAIT WEAK. PT DENIES FURTHER NEEDS. WHITE BOARD UPDATED. CALL LIGHT IN REACH.
[2023-08-05 20:16] VITALS: BP 100/54
--- NOTE | 2023-08-05 20:32 | NUR ---
EVENING ASSESSMENT COMPLETE. SCHEDULED MEDS ADMIN PER EMAR. PT DENIES PAIN OR NAUSEA. SUPRAPUBIC CATH PATENT WITH YELLOW URINE. FOULD ODOR NOTED. INCISION TO LEFT HIP WELL APPROXIMATED WITH FOUR BRISA INTACT. NO REDNESS OR DRAINAGE NOTED. PT DENIES QUESTIONS OR CONCERNS. CALL LIGHT IN REACH.
--- NOTE | 2023-08-06 00:23 | NUR ---
PT RESTING IN BED WITH EYES CLOSED. RESPIRATIONS EVEN. CALL LIGHT IN REACH.
--- NOTE | 2023-08-06 03:22 | NUR ---
PT RESTING IN BED WITH EYES CLOSED. RESPIRATIONS EVEN. CALL LIGHT IN REACH.
--- NOTE | 2023-08-06 05:33 | NUR ---
PT RESTING WITH EYES CLOSED. AWAKENS EASILY. I&O OBTAINED, WNL. SCHEDULED MEDS ADMIN PER EMAR. PT REPORTS SHE IS RESTING COMFORTABLY. DENIES NEEDS. CALL LIGHT IN REACH.
--- NOTE | 2023-08-06 07:26 | NUR ---
RECIEVED SHIFT REPORT FROM NURSE. PT IS CURRENTLY SLEEPING. EVEN UNLABORED BREATHING NOTED. CALL LIGHT WITHIN REACH.
--- NOTE | 2023-08-06 07:49 | NUR ---
REPORT RECEIVED FROM GENESIS BERRY. PT RESTING WITH EYES CLOSED.
--- NOTE | 2023-08-06 08:47 | NUR ---
PATIENT UP TO CHAIR FOR BREAKFAST, 1PA FWW. PATIENT DID WELL AMBULATING TO CHAIR. LINENS CHANGED. CALL LIGHT IN REACH. NO FURHTER NEEDS AT THIS TIME.
--- NOTE | 2023-08-06 09:41 | NUR ---
CHECKING ON PT. REMOVED TRAY AND ROSES FROM BEDSIDE TABLE PER REQUEST. PT SITTIN GUP IN CHAIR AND DENIES ANY CONCERNS. GIVEN MORE COFFEE.
[2023-08-06 09:53] VITALS: BP 108/40
--- NOTE | 2023-08-06 10:19 | NUR ---
PT IS CURRENTLY UP IN HER CHAIR WATCHING TV. ASSESSMENT DONE. NO ABNORMAL FINDINGS. PT INCISION CLEAN DRY INTACT WITH NO DISCOLORATIONS. LUNG SOUNDS CLEAR. NO OTHER CARES ARE NEEDED OR REQUESTED AT THIS TIME CALL LIGHT WITHIN REACH
--- NOTE | 2023-08-06 11:21 | NUR ---
PT IS WITH OT. JUST FINISHED SHOWERING AND NOW WORKING ON ADL'S. PT STATES SHE HAS PAIN IN HER HIP. WHEN OFFERED PAIN MEDICATION PT STATES SHE DOES NOT WANT ANYTHING. NO OTHER CARES ARE NEEDED OR REQUESTED AT THIS TIME. CALL LIGHT WITHIN REACH
--- NOTE | 2023-08-06 13:51 | NUR ---
PATIENT SITTING UP IN CHAIR TALKING ON PHONE TO FAMILY. I&O'S CHARTED. CALL LIGHT IN REACH. NO FURTHER NEEDS AT THIS TIME.
--- NOTE | 2023-08-06 14:58 | NUR ---
PATIENT IS SITTING IN A CHAIR KNITTING. PATIENT'S PT/OT IS GOING WELL PER PATIENT.CM WILL CONTINUE TO MONITOR PATIENT FOR IMPROVEMENT.
--- NOTE | 2023-08-06 15:35 | NUR ---
PT IS CURRENTLY SIITING UP IN HER CHAIR. WHEN ASKED IF SHE NEEDED ANYTHING PT STATED NO. NO CONCERNS AT THIS TIME. CALL LIGHT WITHIN REACH
--- NOTE | 2023-08-06 18:57 | NUR ---
PATIENT BACK TO BED FROM CHAIR, 1PA FWW. PATIENT TOLERATED TRANSFER WELL. I&O'S CHARTED. CALL LIGHT IN REACH. NO FURTHER NEEDS AT THIS TIME.
--- NOTE | 2023-08-06 19:13 | NUR ---
REPORT RECEIVED FROM DAY SHIFT RN. PT LYING IN BED WITH EYES CLOSED. RESPIRATIONS EVEN. CALL LIGHT IN REACH. WHITE BOARD UPDATED.
[2023-08-06 19:57] VITALS: BP 100/58
--- NOTE | 2023-08-06 21:09 | NUR ---
PT RESTING WITH EYES CLOSED. AWAKENS EASILY. VS AND I&O OBTAINED. EVENING ASSESSMENT COMPLETE. SCHEDULED MEDS ADMIN PER EMAR. PRN FOR CONSTIPATION ADMIN PER REQUEST. PT C/O COCCYX PAIN. UP TO CHAIR WITH 2PA AND FWW TO PLACE WAFFLE MATTRESS. ALLEVYN DRESSING IN PLACE ON RIGHT BUTTOCK. PT BACK TO BED, SIMIN FAIR. SUPRAPUBIC CATH PATENT WITH YELLOW URINE. ODOR NOTED. ASSISTED PT TO REPOSITION IN BED. PT DENIES QUESTIONS OR CONCERNS. CALL LIGHT IN REACH.
--- NOTE | 2023-08-07 00:11 | NUR ---
PT RESTING IN BED WITH EYES CLOSED. RESPIRATIONS EVEN. CALL LIGHT IN REACH.
--- NOTE | 2023-08-07 04:15 | NUR ---
PT RESTING IN BED WITH EYES CLOSED. RESPIRATIONS EVEN. CALL LIGHT IN REACH.
--- NOTE | 2023-08-07 06:24 | NUR ---
PT RESTING WITH EYES CLOSED. AWAKENS EASILY. SHEDULED MEDS ADMIN PER EMAR. I&O OBTAINED. SUPRAPUBIC CATH PATENT WITH QS YELLOW URINE. ODOR NOTED. WARM BLANKET PROVIDED. NO FURTHER NEEDS.
--- NOTE | 2023-08-07 07:40 | NUR ---
RECEIVED REPORT FROM CONSULTING DATABASE ADMINISTRATOR RN. PATIENT RESTING WITH EYES CLOSED. RESPIRATIONS ARE EVEN AND UNLABORED. PATIENT CALL LIGHT AND PERSONAL BELONGINGS ARE WITHIN REACH.
--- NOTE | 2023-08-07 08:30 | NUR ---
Pt. was discussed in 8:30 meeting with and PT/OT. PT states concern as pt is unstable when attempting to do stairs. Pts distance for walking has been improving daily. Pt.s goal is to walk 2 steps into RV with assist from son. PT has requested son to visit tomorrow to practice steps and to attend the IDT meeting.
[2023-08-07 09:22] VITALS: BP 113/62
--- NOTE | 2023-08-07 11:30 | NUR ---
Spoke with pt and she feels she is improving. She is stating she would like to go home by the end of the week. She still has a goal of walking steps into the RV. Therapy will cont. to work towards this goal.
--- NOTE | 2023-08-07 12:30 | NUR ---
Updated from PT, pt was able to walk 50 ft today.
--- NOTE | 2023-08-07 12:53 | NUR ---
PATIENT IS UP IN CHAIR AND SLEEPING.
--- NOTE | 2023-08-07 18:10 | NUR ---
PATIENT ATE 90% OF DINNER, ENDORSES FEELING DIZZY AT THIS TIME AND ALSO ENDORSES THAT THIS IS A USUAL OCCURANCE AND SHE FEELS THAT THIS IS RELATED TO HER MS. I/O ARE COMPLETE.
--- NOTE | 2023-08-07 19:25 | NUR ---
REPORT RECEIVED FROM DAY SHIFT RN. PT SITTING IN RECLINER ALERT AND ORIENTED. DENIES NEEDS. WHITE BOARD UPDATED. CALL LIGHT IN REACH.
--- NOTE | 2023-08-07 19:51 | NUR ---
PT BACK TO BED WITH 2PA AND FWW. GAIT WEAK. ASSISTED TO REPOSITION IN BED. NO FURTHER NEEDS AT THIS TIME. CALL LIGHT IN REACH.
[2023-08-07 22:16] VITALS: BP 117/46
--- NOTE | 2023-08-07 22:42 | NUR ---
EVENING ASSESSMENT COMPLETE. SCHEDULED MEDS ADMIN PER EMAR. PT DENIES PAIN OR NAUSEA. DENIES DIZZINESS AT THIS TIME. VS AND I&O OBTAINED. SUPRAPUBIC CATH PATENT WITH QS YELLOW URINE. LEFT HIP INCISION WELL APPROXIMATED WITH BRISA INTACT. NO REDNESS OR DRAINAGE NOTED. ASSISTED PT TO REPOSITION IN BED. PT DENIES QUESTIONS OR CONCERNS. CALL LIGHT IN REACH.
--- NOTE | 2023-08-08 01:17 | NUR ---
PT RESTING IN BED WITH EYES CLOSED. RESPIRATIONS EVEN. CALL LIGHT IN REACH.
--- NOTE | 2023-08-08 04:15 | NUR ---
PT RESTING IN BED WITH EYES CLOSED. RESPIRATIONS EVEN. CALL LIGHT IN REACH.
--- NOTE | 2023-08-08 05:56 | NUR ---
PT RESTING IN BED. AWAKENS EASILY. SCHEDULED MEDS ADMIN PER EMAR. I&O OBTAINED. WARM BLANKET PROVIDED. PT REPORTS SHE IS RESTING WELL. DENIES NEEDS.
--- NOTE | 2023-08-08 08:30 | NUR ---
Pt discussed in 8:[address] Moyer, PT, and CM. I was notified pt as a follow up appt tomorrow with her orthopedic surgeon. Discussed we can schedule [facility] transport and Dr./Pt can sign a Temporary Absense from facility form. Pt. can go to her scheduled appt. Per PT, pts son plans on riding with her. I will speak with pt and get the time for the appt and set up transport.
--- NOTE | 2023-08-08 09:50 | NUR ---
Spoke with Re as she has stated different days she wants to dc to PT and to CM. Pt now stating she would like to stay through Sunday. She states she is feeling much better following her own medication for her MS, brought in by her son yesterday. Pt states concern if she leaves Sunday she will lose the progress she has made in the last two days.
--- NOTE | 2023-08-08 10:00 | NUR ---
In and spoke with pt. She states her son has set up her transport and has the time for the appt. She is unsure which Dr. her appt is with. I will call her son and clarify. Called and spoke with son, Wade. He states he over slept and did not make it in this am to work with PT and his mom on the stairs. He states he thinks moms appt was yesterday with the surgeon and possibly with [facility] today or tomorrow. He states he has to get off the phone as he has scheduled [facility] transport today and he needs to cancel. He will be in later.
--- NOTE | 2023-08-08 10:10 | NUR ---
PT WORKING WITH PHYSICAL THERAPY.
--- NOTE | 2023-08-08 10:15 | NUR ---
I called and checked with [facility]. Pts surgeon was Dr. Jeferson Kruse, Orthopedics. I was transfered to their office and spoke with Wendy. Pt does not have any fu appts scheduled. I let her know pt will dc from our swingbed program on Sunday at the pts request. She scheduled the pt for a FU appt on Aug 15, 2023 at 2:15. Their address is [facility], [address] [place] [address]. Phone number [phone]. I will let the son know of the scheduled appt for next week. She will call back with orders if the wants her carissa removed or if they can wait until next week.
--- NOTE | 2023-08-08 10:45 | NUR ---
PT SITTING IN CHAIR, JUST FINISHED WITH PHYSICAL THERAPY. PT STATES SHE HAS MILD PAIN AFTER PHYSICAL THERAPY BUT DENIES NEED FOR PAIN MEDICATION. ASSESSMENT COMPLETED. PT ON ROOM AIR, DENIES SOB. BOWEL TONES ACTIVE. SUPRAPUBIC CATH DRAINING YELLOW URINE. PT WITH HX OF MS, RIGHT LEG WEAKER THAN LEFT, PULSES STONG, WITHOUT EDEMA. PT DENIES OTHER NEEDS AT THIS TIME. DISCUSSED PLAN OF CARE WITH PT.
[2023-08-08 11:00] VITALS: BP 117/44
--- NOTE | 2023-08-08 11:33 | NUR ---
CURTAIN PULLED. DID NOT DISTURB. PRAYED FOR RASTAFARI OF STRENGTH AND ONGOING BLESSING.
--- NOTE | 2023-08-08 13:18 | NUR ---
PT SITTING IN CHAIR, WATCHING TV, PT DENIES NEEDS AT THIS TIME.
--- NOTE | 2023-08-08 14:20 | NUR ---
Received a return call from Wendy at Dr. Kruse's office. She states he would like the carissa removed and like and XRAY of her femur. I gave them our fax number and she will fax a written order when completed.
--- NOTE | 2023-08-08 16:34 | NUR ---
PT SITTING IN CHAIR, ASSISTED TO REPOSITION. GIVEN AFTERNOON MEDICATION PER EMAR. FRESH WATER PROVIDED. PT DENIES OTHER NEEDS AT THIS TIME.
--- NOTE | 2023-08-08 18:08 | NUR ---
PT WITH GOOD PROGRESS TODAY. PT ON ROOM AIR, LUNG SOUNDS CLEAR. TOLERATED REGULAR DIET. DENIES NEED FOR PAIN MEDICATION, JUST A LITTLE SORE AFTER WORKING WITH PHYSICAL THERAPY. PT WITH OUT IV. SUPRAPUBIC CATH CONTINUES TO HAVE MALODOROUS URINE. HX OF MS, CONTINUES TO HAVE RIGHT SIDED WEAKNESS BUT WAS BLE TO WORK WITH PHYSICAL THERAPY AND DO STAIRS. PLAN FOR PT TO FOLLOW UP WITH SURGEON TOMORROW AND THEN DISCHARGE ON SUNDAY.
--- NOTE | 2023-08-08 20:16 | NUR ---
patient up in chair watching TV and awaiting her son's arrival. no compliants, report provided by barbara HURTADO, patien with call light in reach.
[2023-08-08 20:28] VITALS: BP 122/48
--- NOTE | 2023-08-08 20:29 | NUR ---
Patient assisted to bed, SBA with use of FWW. toelrated well, still weak in lower legs, VSS. call light in reach.
--- NOTE | 2023-08-08 23:10 | NUR ---
Patient resting with eyes closed, appears comfortable, RR=18, call light within reach.
--- NOTE | 2023-08-09 00:51 | NUR ---
Patient appears a sleep, appears comfortable, rr-18. call light within reach.
--- NOTE | 2023-08-09 02:15 | NUR ---
Patient continues to sleep with little snore noted, no distress, appears comfortable, call light within reach.
--- NOTE | 2023-08-09 04:14 | NUR ---
patient continues to sleep comfortable, no noted distress, lights are out and call light within reach.
--- NOTE | 2023-08-09 06:07 | NUR ---
Patient has slept through the night without complaints, call light in reach. No c/o discomfort.
--- NOTE | 2023-08-09 07:10 | NUR ---
Orders were on my fax machine from Dr. Kruse when I arrived. Orders taken to Ev Yang RN.
--- NOTE | 2023-08-09 08:05 | NUR ---
REPORT RECEIVED, ALL QUESTIONS ANSWERED. PT RESTING IN BED WITH EYES CLOSED, RESPIRATIONS EVEN AND UNLABORED. CALL LIGHT IN REACH.
--- NOTE | 2023-08-09 08:30 | NUR ---
PATIENT AWAKE IN BED, VITALS CHARTED, HAGEN EMPTIED. RN AT BEDSIDE. CALL [facility] IN REACH.
--- NOTE | 2023-08-09 09:10 | NUR ---
Met with pt and IDT team to discuss goals. Son had planned on working with pt yesterday and attending the meeting. Son did not arrive. Pt called him on her cell so he could listen to the meeting. Pt is near to meeting goals and dc. Pt plans on dc to RV on Sunday. PT would like son to visit and walk stairs with pt as this is pts goal to enter her RV and walk up the steps with minimal assist from son. Son states he will be in by 10:30 to work with mom. See IDT assessment.
--- NOTE | 2023-08-09 09:20 | NUR ---
SURGICAL BRISA REMOVED PER MD ORDER. 4 BRISA IN TOTAL REMOVED. PT TOLERATED WELL. INCISION REMAINS WELL APPROXIMATED, NO REDNESS, SWEELING OR DRAINAGE NOTED. PT DENIES FURTHER NEEDS AT THIS TIME. CALL LIGHT IN REACH.
[2023-08-09 09:22] VITALS: BP 111/59
--- NOTE | 2023-08-09 10:36 | NUR ---
PT UP WORKING WITH PHYSICAL THERAPY.
--- NOTE | 2023-08-09 11:20 | NUR ---
PT SITTING UP IN RECLINER. SON AT BEDSIDE. DENIES NEEDS AT THIS TIME. CALL LIGHT IN REACH.
--- NOTE | 2023-08-09 12:00 | NUR ---
PT C/O CONSTIPATION, LAST BM CHARTED 08/05. PT GIVEN PRN SENNA, PROVIDED EDUCATION ON MEDICATION AND CONSTIPATION. PT VERBALIZED UNDERSTANDING WITH NO FURTHER QUESTIONS. DENIES FURTHER NEEDS AT THIS TIME. CALL LIGHT IN REACH, SON AT BEDSIDE.
--- NOTE | 2023-08-09 14:15 | NUR ---
PATIENT SITTING UP IN RECLINER FINISHED WITH LUNCH AND WATCHING TV. HAGEN EMPTIED AND I&OS CHARTED. FRESH ICE WATER PROVIDED. CALL LIGHT IN EASY REACH, ROOM TIDIED, NO OTHER NEEDS AT THIS TIME.
--- NOTE | 2023-08-09 15:21 | NUR ---
PT SITTING UP IN RECLINER. WATCHING TV. REPOSITIONED IN CHAIR. SCHEDULED MEDICATIONS GIVEN, SEE EMAR. PT DENIES FURTHER NEEDS AT THIS TIME. CALL LIGHT IN REACH.
--- NOTE | 2023-08-09 19:38 | NUR ---
REPORT RECEIVED FROM DAY SHIFT RN. PT RESTING IN CHAIR. SAFETY PRECAUTIONS MAINTAINED. CALL LIGHT WITHIN REACH. WILL CONTINUE TO MONITOR.
[2023-08-09 20:01] VITALS: BP 127/69
--- NOTE | 2023-08-09 20:12 | NUR ---
PT ASSESSED AND MEDICATIONS GIVEN. PT ASSISTED BACK TO BED. SUPRAPUBIC CATHETER IN PLACE DRAINING WELL PER GRAVITY. SAFETY PRECAUTIONS MAINTAINED. CALL LIGHT WITHIN REACH. WILL CONTINUE TO MONITOR.
--- NOTE | 2023-08-10 06:07 | NUR ---
PT RESTED WELL DURING THE SHIFT. VSS. [place]ICK AND CHANGED, GOOD OUTPUT NOTED. SAFETY PRECAUTIONS MAINTAINED. CALL LIGHT WITHIN REACH. WILL CONTINUE TO MONITOR.
--- NOTE | 2023-08-10 06:11 | NUR ---
PT RESTED WELL DURING THE SHIFT. SUPRAPUBIC CATHETER IN PLACE, GOOD OUTPUT NOTED. VSS. SAFETY PRECAUTIONS MAINTAINED. CALL LIGHT WITHIN REACH. WILL CONTINUE TO MONITOR.
--- NOTE | 2023-08-10 07:33 | NUR ---
recieved report from nurse. pt is currently sleeping. chest rise with even and unlabored breathing seen. no other cares needed at this time. call light within reach
[2023-08-10 10:06] VITALS: BP 124/52
--- NOTE | 2023-08-10 10:30 | NUR ---
PT IS CURRENTLY IN BED WATCHING TV. ASSESSMENT COMPLETE AND MEDS GIVEN. NO ABNORMAL FINDINGS. PT IS IN NO PAIN. VITALS ARE STABLE. NO OTHER CARES NEEDED OR REQUESTED ATTHIS TIME. CALL LIGHT WITHIN REACH
--- NOTE | 2023-08-10 11:29 | NUR ---
PT SITTING IN CHAIR. STATES DOING WELL. DENIES NEEDS AT THIS TIME. DECLINED PRAYER IN ROOM. PRAYED FOR CONTINUED HEALING FROM OUTSIDE ROOM.
--- NOTE | 2023-08-10 13:00 | NUR ---
Spoke with Re. She cont. to plan for dc to home on Sunday. Discussed I need to give her a Letter of Discharge 24 hrs before discharge. I don't work weekends. She is agreement to sign as she states this is her plan and she is leaving on Sunday. I gave her the SB survey and I completed the letter of notification to the [facility]. I will fax on Sunday.
--- NOTE | 2023-08-10 13:02 | NUR ---
UR NOTE: RECEIVED FAX FROM [facility] WITH [employer] REF#[id number] DATES 07/27/23-08/16 20 NIGHTS
--- NOTE | 2023-08-10 13:45 | NUR ---
PT CALED TTO GET ASSISTANCE TO THE RESTROOM. PT WAS ABLE TO GET UP ON HER OWN WITH THE FWW AND WALK WITHOUT HELP TO THE COMMODE.
--- NOTE | 2023-08-10 14:53 | NUR ---
CHANGED PATIENT'S BED LINENS.
--- NOTE | 2023-08-10 19:26 | NUR ---
AFTER I DID HER INTAKE AND OUTPUT. SO BEFORE I LEFT PATIENT'S ROOM SHE WANTED TO GO TO BED. SO HER AND WALKED TO HER BED. PATIENT USED HER WALKER. PATIENT IS IN BED. ASKED HER IF SHE NEEDED ANYTHING ELESE AND SHE SAID NO.
--- NOTE | 2023-08-10 19:30 | NUR ---
REPORT RECEIVED FROM DAY SHIFT RN. PT SITTING IN CHAIR. SAFETY PRECAUTIONS MAINTAINED. CALL LIGHT WITHIN REACH. WILL CONTINUE TO MONITOR.
[2023-08-10 20:04] VITALS: BP 114/64
--- NOTE | 2023-08-10 20:08 | NUR ---
PT ASSESSED AND MEDICATIONS GIVEN. SUPRAPUBIC CATHETER IN PLACE, DRAINING WELL PER GRAVITY. VSS. PT ASSISTED TO BED. SAFETY PRECAUTIONS MAINTAINED. CALL LIGHT WITHIN REACH. WILL CONTINUE TO MONITOR.
--- NOTE | 2023-08-11 06:00 | NUR ---
PT RESTED WELL DURING THE SHIFT. SUPRAPUBIC CATHETER INTACT, GOOD OUTPUT NOTED. VSS. PT UP X1 WITH WALKER. SAFETY PRECAUTIONS MAINTAINED. CALL LIGHT WITHIN REACH. WILL CONTINUE TO MONITOR.
--- NOTE | 2023-08-11 07:02 | NUR ---
VERBAL REPORT RECEIVED FROM GENESIS ROSAS. PT RESTS IN BED WITH EYES CLOSED, RESP EVEN AND UNLABORED.
[2023-08-11 10:29] VITALS: BP 111/40
--- NOTE | 2023-08-11 14:18 | NUR ---
PT REPORTS SHE NEEDS A NEW STATLOCK FOR HER SP CATHETER. NOTED STATLOCK ON RLE IS BROKEN AND NO LONGER SECURING SP TUBE. OLD STATLOCK REMOVED, NEW STATLOCK PLACED, SECURES SP TUBE TO RLE. NO FURTHER REQUESTS AT THIS TIME.
--- NOTE | 2023-08-11 19:38 | NUR ---
REPORT RECEIVED FROM DAYS SHIFT RN. PT SITTING IN CHAIR. SAFETY PRECAUTIONS MAINTAINED. CALL LIGHT WITHIN REACH. WILL CONTINUE TO MONITOR.
[2023-08-11 20:06] VITALS: BP 102/59
--- NOTE | 2023-08-11 20:16 | NUR ---
PT ASSESSED AND MEDICATIONS GIVEN. PT ASSISTED BACK TO BED. SUPRAPUBIC CATHETER IN PLACE, DRAINING WELL PER GRAVITY. VSS. SAFETY PRECAUTIONS MAINTAINED. CALL LIGHT WITHIN REACH. WILL CONTINUE TO MONITOR.
--- NOTE | 2023-08-12 06:04 | NUR ---
PT RESTED WELL DURING THE SHIFT. VSS. SUPRAPUBIC CATHETER INPLACE, DRAINING WELL PER GRAVITY. GOOD OUTPUT NOTED. SAFETY PRECAUTIONS MAINTAINED. CALL LIGHT WITHIN REACH. WILL CONTINUE TO MONITOR.
--- NOTE | 2023-08-12 07:01 | NUR ---
VERBAL REPORT RECIEVED FROM GENESIS ROSAS. PT RESTS IN BED WITH EYES CLOSED, RESP EVEN AND UNLABORED.
[2023-08-12 10:11] VITALS: BP 122/91
[2023-08-12 14:30] VITALS: BP 112/50
--- NOTE | 2023-08-12 19:15 | NUR ---
REPORT RECEIVED FROM GENESIS AGUIRRE. pt UP IN CHAIR. TANK SETTER IN ROOM TO ASSIST pt TO BED AT THIS TIME.
[2023-08-12 21:44] VITALS: BP 99/55
--- NOTE | 2023-08-12 21:52 | NUR ---
pt AWAKE RESTING IN BED WATCHING TV. DENIES PAIN. ASSESSMENT COMPLETE. SCHEDULED MEDICATIONS ADMINISTERED. CATHETER EMPTIED. CALL LIGHT IN REACH. LIGHTS OFF IN ROOM. pt DENIES ADDITIONAL NEEDS.
--- NOTE | 2023-08-13 00:05 | NUR ---
ROUNDED ON pt. RESTING IN BED WITH EYES CLOSED, BREATHING EQUAL AND UNLABORED. LIGHTS OFF IN ROOM.
--- NOTE | 2023-08-13 02:30 | NUR ---
CHECKED ON pt. RESTING IN BED WITH EYES CLOSED. BREATHING UNLABORED. NO DISTRESS NOTED.
--- NOTE | 2023-08-13 03:55 | NUR ---
pt RESTING IN BED WITH HEAD COVERED BY BLANKET. BREATHING VISIBLE. SNORING. LIGHTS OFF IN ROOM.
--- NOTE | 2023-08-13 06:32 | NUR ---
pt SLEEPING, AWAKENS TO VOICE. SUPRAPUBIC CATHETER EMPTIED. SCHEDULED MEDICATION ADMINISTERED. CALL LIGHT IN REACH.
--- NOTE | 2023-08-13 07:03 | NUR ---
VERBAL REPORT RECEIVED FROM GENESIS KNIGHT. PT RESTS IN BED WITH EYES CLOSED, RESP EVEN AND UNLABORED.
--- NOTE | 2023-08-13 07:32 | NUR ---
recieved report from nurse. pt is currently asleep. even and unlabored breathing noted. no other cares needed at this time. call light within reach.
--- NOTE | 2023-08-13 08:50 | NUR ---
PT IS CURRENTLY IN BED EATING BREAKFAST. ASSESSMENT COMPLETE. NO ABNORMAL FINDINGS. PT IS EAGER TO GO HOME TODAY. MEDS GIVEN. ASKED PT IF SHE NEEDED ANYTHING SHE STATED NO. PT IS A+O WITH NO PAIN. N O OTHER CARES NEEDED AT THIS TIME. CALL LIGHT WITHIN REACH
[2023-08-13 09:14] VITALS: BP 107/54
--- NOTE | 2023-08-13 10:45 | NUR ---
Spoke with Re. She cont. to plan on dc today. Son will pick her up. She denies needs Letter, survey, and letter for beau completed. Pt denies further needs.
== END 2023-08-13 11:55 | disposition home or self-care (01) | DRG 561 ==
LOC: MS 12:25
PROVIDERS: ADMIT Family Medicine; ATTEND Family Medicine
DX: S72.012D Unspecified intracapsular fracture of left femur, subsequent encounter for closed fracture with routine healing (principal); E03.9 Hypothyroidism, unspecified; G35 Multiple sclerosis; R56.9 Unspecified convulsions; G50.0 Trigeminal neuralgia; Z90.49 Acquired absence of other specified parts of digestive tract; Z98.890 Other specified postprocedural states; Z87.891 Personal history of nicotine dependence; Z79.899 Other long term (current) drug therapy; Z79.890 Hormone replacement therapy
CPT/HCPCS: 36415; 73502; 80053; 84443; 85025; 97110; 97116; 97166; 97530; 97535; A9270

== ENCOUNTER 2024-08-06 01:09 | Emergency (ER) | payer OTHER ==
[~2024-08-06] VITALS: Ht 152.4 cm; Wt 50.0 kg
[~2024-08-06 01:09] MED LIST changes: +DOCUSATE SODIU100 MG PO; +KESIMPTA P20 MG/0.4 SUB-Q
[2024-08-06] MEDS ORDERED: KETOROLAC TROMETHAMINE 15 MG/ML VIAL IV ONE (01:15)
[2024-08-06] MEDS ORDERED: ALBUTEROL/IPRATROPIUM 3 ML NEB INH ONE (01:15)
[2024-08-06] MEDS ORDERED: CEPHALEXIN250 MG PO (01:19)
[2024-08-06] MEDS ORDERED: CETIRIZINE HCL10 MG PO (01:19)
[2024-08-06] MEDS ORDERED: FLUOXETINE HCL20 MG (01:20)
[2024-08-06] MEDS ORDERED: TIZANIDINE HCL2 MG PO (01:20)
[2024-08-06] MEDS ORDERED: KESIMPTA P20 MG/0.4 SQ (01:21)
[2024-08-06] MEDS ORDERED: Acetylcysteine 800 MG/4 ML VIAL INH ONE (01:30)
[2024-08-06 01:40] LABS: BASOPHILS 0.5 % (0-2); EOSINOPHILS 1.6 % (0-6); HEMATOCRIT 40.4 % (35.0-50.0); HEMOGLOBIN 13.8 g/dL (12.0-18.0); LYMPHOCYTES 27.6 % (24-44); MCH 31.7 (27-36); MCHC 34.1 g/dl (30-36); MCV 92.8 fl (81-99); MONOCYTES 6.9 % (0-12); NEUTROPHILS 63.4 % (39-80); PLATELET COUNT 293 K/uL (140-440); RBC 4.35 M/ul (4.3-5.7); RDW 13.1 (10.5-15.0)
[2024-08-06] MEDS ORDERED: ONDANSETRON 4 MG TAB ODT SL ONE (01:45)
[2024-08-06 01:58] LABS: ALBUMIN 3.4 g/dL (3.4-5.0); ALBUMIN/GLOBULIN RATIO 0.97 (1.1-2.4); ANION GAP 11.1 (7-21); BILIRUBIN, TOTAL 0.4 ng/dL (0.2-1.0); BUN/CREATININE RATIO 30.26 (6.0-28.6); CALCIUM 8.8 mg/dL (8.5-10.1); CREATININE, SERUM 0.76 mg/dL (0.55-1.02); POTASSIUM 4.1 mmol/L (3.5-5.1); PROTEIN, TOTAL 6.9 g/dL (6.4-8.2)
[2024-08-06 02:16] LABS: INFLUENZA B NAA NEGATIVE (NEGATIVE); RESPIRATORY SYNCYTIAL VIR NAA NEGATIVE (NEGATIVE)
[2024-08-06] MEDS ORDERED: ONDANSETRON 4 MG HOME.PACK SL ONE (02:30)
[2024-08-06] MEDS ORDERED: CEFDINIR 250 MG/5 ML HOME.PACK PO ONE (02:30)
[2024-08-06] MEDS ORDERED: ONDANSETRON ODT8 MG PO (02:30)
[2024-08-06] MEDS ORDERED: NASAL DECONGEST30 MG PO (02:35)
[2024-08-06] MEDS ORDERED: TRAMADOL HCL50 MG PO (02:35)
[2024-08-06] MEDS ORDERED: TRAMADOL HCL 50 MG HOME.PACK PO ONE (02:45)
[2024-08-06 03:18] VITALS: BP 111/63
== END 2024-08-06 03:45 | disposition home or self-care (01) ==
LOC: ED 01:09
PROVIDERS: Family Medicine
DX: J18.9 Pneumonia, unspecified organism (principal); Z88.2 Allergy status to sulfonamides; Z88.3 Allergy status to other anti-infective agents; Z79.890 Hormone replacement therapy; Z79.899 Other long term (current) drug therapy
CPT/HCPCS: 36415; 71250; 80053; 85025; 87502; 87651; 94640; 96374; 99284-25; A9270; J1885; U0002

== ENCOUNTER 2024-11-17 20:14 | Emergency (ER) | payer OTHER ==
[~2024-11-17] VITALS: Ht 152.4 cm; Wt 49.9 kg
[~2024-11-17 20:14] MED LIST changes: +CEPHALEXIN250 MG PO; +CETIRIZINE HCL10 MG PO; +FLUOXETINE HCL20 MG; +KESIMPTA P20 MG/0.4 SQ; +NASAL DECONGEST30 MG PO; +ONDANSETRON ODT8 MG PO; +TIZANIDINE HCL2 MG PO; +TRAMADOL HCL50 MG PO
[2024-11-17] MEDS ORDERED: LIDOCAINE 2% VISCOUS 6 ML SYR TOP ONE (20:30)
[2024-11-17] MEDS ORDERED: SODIUM CHLORIDE 0.9% 1,000 ML IV ONE (20:30)
[2024-11-17 21:10] LABS: BILIRUBIN, URINE NEGATIVE (negative); BLOOD/HGB, URINE LARGE (Negative); KETONE, URINE NEGATIVE (Negative); LEUK ESTERASE, URINE LARGE (negative); NITRITE, URINE POSITIVE (negative)
[2024-11-17 21:15] LABS: RED BLOOD CELLS, URINE >50 /hpf (0-5)
[2024-11-17 21:16] LABS: EPITHELIAL CELLS, URINE SQUAMOUS 1+ /lpf (0-1+); WHITE BLOOD CELLS, URINE >50 /HPF (0-5)
[2024-11-17 21:17] LABS: BACTERIA, URINE RARE /hpf (negative); CASTS, URINE NONE SEEN \\lpf; COLLECTION TYPE, URINE CLEAN CATCH; CRYSTALS, URINE NONE SEEN (0-1+); REFLEX CULTURE, URINE Yes (No)
[2024-11-17] MEDS ORDERED: CEFTRIAXONE/SODIUM CHLORIDE 2 GM/100 ML PIGGYBACK IV ONE (21:30)
[2024-11-17 21:44] LABS: ALBUMIN 2.7 g/dL (3.4-5.0); ALBUMIN/GLOBULIN RATIO 0.75 (1.1-2.4); ANION GAP 14.7 (7-21); BILIRUBIN, TOTAL 0.3 ng/dL (0.2-1.0); BUN/CREATININE RATIO 27.5 (6.0-28.6); CALCIUM 8.3 mg/dL (8.5-10.1); CREATININE, SERUM 0.8 mg/dL (0.55-1.02); MAGNESIUM 1.8 mg/dL (1.8-2.4); POTASSIUM 3.7 mmol/L (3.5-5.1); PROTEIN, TOTAL 6.3 g/dL (6.4-8.2)
[2024-11-17 22:17] LABS: BASOPHILS 0.9 % (0-2); EOSINOPHILS 4.5 % (0-6); HEMATOCRIT 39.9 % (35.0-50.0); HEMOGLOBIN 13.6 g/dL (12.0-18.0); LYMPHOCYTES 19.2 % (24-44); MCH 31.6 (27-36); MCV 92.7 fl (81-99); MONOCYTES 8.6 % (0-12); NEUTROPHILS 66.8 % (39-80); PLATELET COUNT 291 K/uL (140-440); RDW 13.1 (10.5-15.0)
[2024-11-17] MEDS ORDERED: MACROBID 100 M100 MG PO (23:07)
[2024-11-17] MEDS ORDERED: NITROFURANTOIN MONOHYD MACROCR 100 MG HOME.PACK PO ONE (23:15)
[2024-11-17 23:41] VITALS: BP 108/58
== END 2024-11-17 23:42 | disposition home or self-care (01) ==
LOC: ED 20:14
PROVIDERS: Family Medicine
DX: N39.0 Urinary tract infection, site not specified (principal); G35 Multiple sclerosis; Z88.2 Allergy status to sulfonamides; Z88.1 Allergy status to other antibiotic agents; Z79.899 Other long term (current) drug therapy; Z79.890 Hormone replacement therapy
CPT/HCPCS: 36415; 51702; 71045; 80053; 81001; 83735; 85025; 87088; 99284-25; J0696; J7030

== ENCOUNTER 2025-01-15 11:14 | Inpatient (IN) | payer OTHER ==
[~2025-01-15] VITALS: Ht 152.4 cm; Wt 44.5 kg
[~2025-01-15 11:14] MED LIST changes: -CARBAMAZEPINE200 MG PO; -FLUOXETINE HCL20 MG; +MACROBID 100 M100 MG PO; +PROZAC40 MG PO
[2025-01-15] MEDS ORDERED: ondansetron HCL 4 MG/2 ML VIAL IV ONE (11:30)
[2025-01-15] MEDS ORDERED: SODIUM CHLORIDE 0.9% 1,000 ML IV ONE (11:30)
[2025-01-15 11:36] LABS: EOSINOPHILS 2.5 % (0-6); HEMATOCRIT 40.4 % (35.0-50.0); HEMOGLOBIN 13.9 g/dL (12.0-18.0); LYMPHOCYTES 22.2 % (24-44); MCHC 34.4 g/dl (30-36); MCV 90.2 fl (81-99); MONOCYTES 7.4 % (0-12); NEUTROPHILS 66.9 % (39-80); PLATELET COUNT 336 K/uL (140-440); RBC 4.48 M/ul (4.3-5.7); RDW 13.3 (10.5-15.0)
[2025-01-15 12:01] LABS: ALBUMIN 3.3 g/dL (3.4-5.0); BILIRUBIN, TOTAL 0.2 mg/dL (0.2-1.0); BUN/CREATININE RATIO 35.95 (6.0-28.6); CALCIUM 8.8 mg/dL (8.5-10.1); CREATININE, SERUM 0.89 mg/dL (0.55-1.02); PROTEIN, TOTAL 6.6 g/dL (6.4-8.2)
[2025-01-15 12:31] LABS: BILIRUBIN, URINE NEGATIVE (negative); BLOOD/HGB, URINE LARGE (Negative); KETONE, URINE NEGATIVE (Negative); LEUK ESTERASE, URINE SMALL (negative); NITRITE, URINE POSITIVE (negative)
[2025-01-15 12:39] LABS: RED BLOOD CELLS, URINE >50 /hpf (0-5)
[2025-01-15 12:40] LABS: BACTERIA, URINE 3+ /hpf (negative); CASTS, URINE NONE SEEN \\lpf; CRYSTALS, URINE NONE SEEN (0-1+); EPITHELIAL CELLS, URINE SQUAMOUS 2+ /lpf (0-1+)
[2025-01-15 12:41] LABS: COLLECTION TYPE, URINE CLEAN CATCH; REFLEX CULTURE, URINE No (No)
[2025-01-15 12:51] LABS: CORONAVIRUS COVID-19 AG NEGATIVE (NEGATIVE); INFLUENZA A AG NEGATIVE (NEGATIVE); INFLUENZA B AG NEGATIVE (NEGATIVE)
[2025-01-15] MEDS ORDERED: CEFTRIAXONE SODIUM 2 GM in SODIUM CHLORIDE 0.9% 100 ML IV ONE (14:00)
[2025-01-15] MEDS ORDERED: TIZANIDINE HCL 4 MG TABLET PO PRN (14:45)
--- NOTE | 2025-01-15 14:58 | EKG ---
[facility] [address] [place], [place] [address] Signed Normal sinus rhythm Normal ECG No previous ECGs available Confirmed by Nona James MD ([id number]) on 01/15/2025 2:58:19 PM Electronically Signed By: NONA JAMES MD 01/15/25 1458 PATIENT NAME: MARSHAL MCKEON Electrocardiogram DATE OF : 62 PHYSICIAN: NONA JAMES MD REPORT #: [id number] REPORT IS CONFIDENTIAL AND NOT TO BE RELEASED WITHOUT AUTHORIZATION
[2025-01-15] MEDS ORDERED: carBAMazepine 200 MG TAB PO SCH (15:00)
[2025-01-15 15:20] VITALS: BP 126/42
[2025-01-15 15:33] VITALS: BP 126/42
[2025-01-15] MEDS ORDERED: CARBAMAZEPINE300 MG PO (15:39)
[2025-01-15] MEDS ORDERED: LEVOTHYROXINE50 MCG PO (15:40)
[2025-01-15] MEDS ORDERED: CETIRIZINE HCL10 MG PO (15:40)
[2025-01-15] MEDS ORDERED: ACETAMINOPHEN 325 MG TAB PO PRN (15:45)
[2025-01-15] MEDS ORDERED: ondansetron HCL 4 MG/2 ML VIAL IV PRN (15:45)
--- NOTE | 2025-01-15 15:59 | NUR ---
INTO SEE PATIENT. PATIENT RESTING IN BED. PRIMARY NURSE DOING ADMISSION ASSESSMENT. PATIENT ASKED FOR ME TO CALL SON FOR INFORMATION. TALKED WITH AIRAM MCKEON HER MAIN PREPARED FOODS TEAM LEADER. PERSONAL HEALTH INFORMATION REVIEWED. PATIENT LIVES IN AN APARTMENT WITH SON. RAMP TO GET INTO. PATIENT HAS AN ELECTRIC WHEELCHAIR SHE USES TO GET INTO AND AROUND HOUSE. DENIES OXYGEN AND CPAP USE. DENIES DIFFCULTY WITH UTILITIES OR FOOD. PATIENT DOES NOT DRIVE. PATIENT IS ESTABLISHED [facility]. SON STATES HE WOULD LIKE PT TO SEE HER BUT HAS NEVER BEEN ABLE TO GET THEM ORDERED. NO FUTHER CM NEEDS AT THIS TIME.
--- NOTE | 2025-01-15 16:00 | NUR ---
THIS RN DOWN TO GET PATIENT FROM ED AND TRANSFERED PATIENT TO ROOM 122 ON THE MEDICAL UNIT. PATIENT ASSISTED TO BED VIA TRANSFER SHEET. PATIENT REPORTS WEAKNESS IN BLE WITH RIGHT BEING CHRONICLY WORSE THAN LEFT. PATIENT DENIES NUMBNESS/TINGLING. PER PATIENT HER SON HELPS WITH CARES AT HOME. PATIENTS HAGEN CATH PER PATIENT IS NORMALLY CHANGED 2X A MONTH. PER ED STAFF IT WAS CHANGED IN ED TODAY. PATIENT REPORTS UNITENTIONAL WEIGHT LOSS OF 20+ LBS IN THE PAST YEAR. PATIENT SEES [facility] FOR CATHETER CHANGES. PATIENT ARRIVED WITH NO FAMILY PRESENT. PATIENT IS NOTED TO BE FORGETFUL ON MEDICATIONS, HX, AND PROVIDERS. PATIENT IS FULLY ALERT TO PERSON, PLACE, AND TIME. PATIENT REPORTS DYSPHAGIA CONCERNS BASELINE. PATIENT IN BED, WATCHING TV, INTRODUCED TO GENESIS HOOKS RN WHO WILL RESUME CARE OF PATIENT.
--- NOTE | 2025-01-15 16:20 | NUR ---
THIS RN RECEIVED REPORT FROM GENESIS TOVAR AT THIS TIME.
--- NOTE | 2025-01-15 16:42 | NUR ---
FULL ASSESSMENT COMPLETE AT THIS TIME. PATIENT IS ALERT AND ORIENTED. PATIENT WITH SLIGHT DYSPHAGIA THAT SHE REPORTED TO [place] THAT SHE HAS AT BASELINE. PT/OT/ST ARE CONSULTED. CARDIAC WITH NORMAL S1 AND S2 ON AUSCULTATION. RADIAL AND PEDAL PULSES ARE STRONG BILATERALLY. SENSATION INTACT WITH NO COMPLAINTS OF NUMBNESS OR TINGLING. NO EDEMA NOTED. CAPILLARY REFILL IN THE UPPER AND LOWER EXTREMITIES IS LESS THAN 3 SECONDS. PATIENT IS ON ROOM AIR AND LUNG SOUNDS ARE CLEAR BILATERALLY. PATIENT IS ON A REGULAR DIET AND BOWEL TONES ARE ACTIVE IN ALL FOUR QUADRANTS. LAST BM WAS 01/14/25. SUPRAPUBIC CATHETER IN PLACE THAT WAS CHANGED TODAY IN THE ER. PATIENT WITH A 20 GAUGE IV IN THE LEFT FOREARM THAT IS SALINE LOCKED. IV FLUSHED WITH 10 ML NORMAL SALINE. IV DRESSING IS CLEAN, DRY, AND INTACT. PATIENT WITH NO COMPLAINTS OF PAIN OR NAUSEA. GENERALIZED WEAKNESS NOTED. SKIN INTACT BUT IS DRY AND FRAGILE. PATIENT STATED NO FURTHER NEEDS AT THIS TIME. CALL LIGHT AND PERSONAL BELONGINGS ARE WITHIN REACH.
[2025-01-15] MEDS ORDERED: CARBAMAZEPINE200 MG PO (17:13)
[2025-01-15] MEDS ORDERED: COLACE100 MG PO (17:14)
[2025-01-15] MEDS ORDERED: IBU600 MG PO (17:14)
[2025-01-15] MEDS ORDERED: ACID REDUCER20 MG PO (17:15)
[2025-01-15] MEDS ORDERED: FLONASE ALLERG9.9 ML NAS (17:15)
--- NOTE | 2025-01-15 17:16 | NUR ---
MED REC COMPLETE
[2025-01-15 17:18] VITALS: BP 119/54
[2025-01-15 17:19] VITALS: BP 119/54
--- NOTE | 2025-01-15 17:19 | NUR ---
VITAL SIGNS TAKEN AND DOCUMENTED IN THE CHART. SEIZURE PADS IN PLACE. TV IS ON. PATIENT WITH EYES OPEN AND RESPIRATIONS ARE EVEN AND UNLABORED. PATIENT PROVIDED WARM WASH CLOTH PER REQUEST. PATIENT STATED NO FURTHER NEEDS AT THIS TIME. CALL LIGHT AND PERSONAL BELONGINGS ARE WITHIN REACH.
[2025-01-15 17:45] LABS: BILIRUBIN, URINE NEGATIVE (negative); BLOOD/HGB, URINE LARGE (Negative); KETONE, URINE NEGATIVE (Negative); LEUK ESTERASE, URINE SMALL (negative); NITRITE, URINE POSITIVE (negative)
[2025-01-15 17:52] LABS: BACTERIA, URINE 2+ /hpf (negative); CASTS, URINE NONE SEEN \\lpf; COLLECTION TYPE, URINE CLEAN CATCH; CRYSTALS, URINE NONE SEEN (0-1+); EPITHELIAL CELLS, URINE NONE SEEN /lpf (0-1+); REFLEX CULTURE, URINE No (No)
--- NOTE | 2025-01-15 18:19 | NUR ---
PATIENT IS LYING IN BED WITH HOB ELEVATED. TV IS ON. PATIENT WITH EYES CLOSED AND RESPIRATIONS ARE EVEN AND UNLABORED. CALL LIGHT AND PERSONAL BELONGINGS ARE WITHIN REACH.
--- NOTE | 2025-01-15 19:17 | NUR ---
REPORT RECEIVED FROM GENESIS HOLLAND. PATIENT RESTING IN BED ON HER BACK WITH HOB ELEVATED, EYES CLOSED AND MOUTH OPEN, EVEN AND UNLABORED RESPIRATIONS NOTED. SEIZURE PADS IN PLACE. CALL LIGHT AND PERSONAL BELONGINGS WITHIN REACH.
--- NOTE | 2025-01-15 20:58 | NUR ---
PATIENT RESTING IN BED WITH TV ON, EYES CLOSED, AND MOUTH OPENED. EVEN AND UNLABORED RESPIRATIONS NOTED. SEIZURE PADS IN PLACE. CALL LIGHT AND PERSONAL BELONGINGS WITHIN REACH.
[2025-01-15] MEDS ORDERED: AMITRIPTYLINE HCL 10 MG TAB PO SCH (21:00)
[2025-01-15 21:07] VITALS: BP 120/61
[2025-01-15 21:14] VITALS: BP 120/61
--- NOTE | 2025-01-15 21:30 | NUR ---
PATIENT ASSESSMENT COMPLETED. VS TAKEN AND ARE STABLE. PATIENT IS ON ROOM AIR AT THIS TIME. THIS RN NOTED PATIENT TO APNIC EPISODES. PATIENT STATES SHE DOES NOT HAVE SLEEP APNEA. CPOX PLACED AT BEDSIDE TO MONITOR. RT NOTIFIED. WHEN THIS RN ASSESS PATIENT ABDOMEN AND SUBRAPUBIC CATHETER, INSERTION SITE WAS CLEAN WITH NO DRAINAGE NOTED. AT THIS TIME PATIENT STATES "I AM WET". UPON FURTHER ASSESSMENT, PATIENT CATHETER TUBING WAS OCCLUDED UNDER PATIENT RIGHT LEG. PATIENT DENIED ANY PAIN OR PRESSURE IN BLADDER. >250 DRAINED AT THIS TIME. JASE POOL ASSISSTED THIS RN TO CHANGE PATIENT BRIEF AND CHUX. PATIENT WITHOUT FURTHER NEEDS AT THIS TIME. CALL LIGHT AND PERSONAL BELONGINGS WITHIN REACH. SEIZURE PADS IN PLACE.
--- NOTE | 2025-01-15 23:33 | NUR ---
PATIENT RESTING IN BED WITH HOB ELEVATED; EYES CLOSED AND MOUTH OPEN. EVEN AND UNLABORED RESPIRATIONS NOTED. CALL LIGHT AND PERSONAL BELONGINGS WITHIN REACH.
[2025-01-16] VITALS (11 sets, daily range): BP systolic 94–129; BP diastolic 52–73
--- NOTE | 2025-01-16 01:38 | NUR ---
PATIENT RESTING IN BED WITH HOB BED ELEVATED AND BLANKET OVER FACE. EVEN AND UNLABORED RESPIRATIONS NOTED. CALL LIGHT AND PERSONAL BELONGINGS WITHIN REACH. CPOX AT BEDSIDE.
--- NOTE | 2025-01-16 02:03 | NUR ---
WELFARE CASE WORKER OBTAINED VITALS AND I&O. CAHT BAG EMPTIED. PT STATES NO NEEDS AT THIS TIME. CALL LIGHT WITHIN REACH.
--- NOTE | 2025-01-16 02:30 | NUR ---
confirmed with elda in lab that blood cultures collected yesterday at 1358 are pending.
--- NOTE | 2025-01-16 03:07 | NUR ---
PATIENT RESTING IN BED WITH HOB ELEVATED AND EYES CLOSED. EVEN AND UNLABORED RESPIRATIONS NOTED. CALL LIGHT AND PERSONAL BELONGINGS WITHIN REACH. CPOX AT BEDSIDE. PATIENT IS 92% ON ROOM AIR. LUNG SOUNDS ARE CLEAR THROUGHOUT. CALL LIGHT AND PERSONAL BELONINGS ARE WITHIN REACH.
--- NOTE | 2025-01-16 04:01 | NUR ---
MARSHAL WAS PLACED ON A CPOX OVERNIGHT DUE TO HER SAUNDRA AND SEVERE SNORING.
--- NOTE | 2025-01-16 04:25 | NUR ---
PATIENT RESTING IN BED WITH HER EYES CLOSED. EVEN AND UNLABORED RESPIRATIONS NOTED. BRIEF CHECKED AT THIS TIME AND WAS CLEAN AND DRY, CATHETER DRAINING APPROPRIATELY.
[2025-01-16 05:31] LABS: BASOPHILS 0.8 % (0-2); EOSINOPHILS 4.8 % (0-6); HEMATOCRIT 37.4 % (35.0-50.0); HEMOGLOBIN 12.8 g/dL (12.0-18.0); LYMPHOCYTES 34.5 % (24-44); MCHC 34.3 g/dl (30-36); MCV 90.5 fl (81-99); MONOCYTES 6.9 % (0-12); PLATELET COUNT 323 K/uL (140-440); RBC 4.13 M/ul (4.3-5.7); RDW 13.7 (10.5-15.0)
[2025-01-16 05:39] LABS: ANION GAP 10.1 (7-21); BUN/CREATININE RATIO 23.33 (6.0-28.6); CALCIUM 8.2 mg/dL (8.5-10.1); CREATININE, SERUM 0.6 mg/dL (0.55-1.02); POTASSIUM 4.1 mmol/L (3.5-5.1)
--- NOTE | 2025-01-16 06:27 | NUR ---
INVESTIGATION SPECIALIST OBTAINED VITALS AND I&O. PT STATES NO NEEDS AT THIS TIME. CALL LIGHT WITHIN REACH.
--- NOTE | 2025-01-16 06:40 | NUR ---
PATIENT MEDICATED PER EMAR. PATIENT DENIES ANY NEEDS AT THIS TIME. CALL LIGHT AND PERSONAL BELONINGS WITHIN REACH.
[2025-01-16] MEDS ORDERED: LEVOTHYROXINE SODIUM 50 MCG TAB PO SCH (07:00)
--- NOTE | 2025-01-16 07:04 | NUR ---
REPORT RECEIVED FROM DISTRIBUTION WAREHOUSE MANAGER RN HOWIE. PATIENT IS LYING IN BED WITH EYES OPEN AND RESPIRATIONS ARE EVEN AND UNLABORED. TV IS ON. SEIZURE PADS IN PLACE. PATIENT STATED NO NEEDS AT THIS TIME. CALL LIGHT AND PERSONAL BELONGINGS ARE WITHIN REACH.
--- NOTE | 2025-01-16 07:50 | NUR ---
PATIENT IS LYING IN BED WITH SEIZURE PADS IN PLACE. PATIENT WITH HOB ELEVATED. PATIENT WITH EYES OPEN AND RESPIRATIONS ARE EVEN AND UNLABORED. TV IS ON. FULL ASSESSMENT COMPLETE AND DOCUMENTED IN THE CHART. PATIENT WITH PT, OT, AND ST CONSULTS. PATIENT WITH SOME DYSPHAGIA AT BASELINE. PATIENT IS ALERT AND ORIENTED. CARDIAC WITH NORMAL S1 AND S2 ON AUSCULTATION. RADIAL AND PEDAL PULSES ARE STRONG BILATERALLY. SENSATION INTACT WITH NO COMPLAINTS OF NUMBNESS OR TINGLING. NO EDEMA NOTED. CAPILLARY REFILL IN THE UPPER AND LOWER EXTREMITIES IS LESS THAN 3 SECONDS BILATERALLY. PATIENT IS ON ROOM AIR WITH THE CPOX AT BEDSIDE. LUNG SOUNDS ARE CLEAR IN ALL LUNG HO BILATERALLY. PATIENT IS ON A REGULAR DIET WITH SOFT AND BITE SIZED TEXTURE. BOWEL TONES ARE ACTIVE IN ALL FOUR QUADRANTS. LAST BM WAS 01/14/25. SUPRAPUBIC CATHETER IN PLACE WITH NO DRAINAGE NOTED AROUND THE SITE. URINE WITH YELLOW WITH SEDIMENT NOTED. CATHETER CHANGED 01/15/25 IN THE ER.PATIENT IV IN THE LEFT FOREARM FLUSHED WITH 10 ML NORMAL SALINE AND IS SALINE LOCKED. IV DRESSING IS CLEAN, DRY, AND INTACT. PATIENT WITH PAIN RATED 7/10 IN THE MOUTH. PATIENT IS REQUESTING PAIN MEDICATION WITH MORNING MEDICATION ADMINISTRATION. PATIENT WITH SEIZURE PADS IN PLACE. SKIN INACT. PATIENT STATED NO FURTHER NEEDS AT THIS TIME. CALL LIGHT AND PERSONAL BELONGINGS ARE WITHIN REACH.
--- NOTE | 2025-01-16 07:51 | NUR ---
CLINICAL NOTE: CLINICAL NOTES SENT TO [facility]
[2025-01-16] MEDS ORDERED: CEFTRIAXONE SODIUM 1 GM in SODIUM CHLORIDE 0.9% 100 ML IV SCH (09:00)
[2025-01-16] MEDS ORDERED: ENOXAPARIN SODIUM 40 MG/0.4 ML SYR SUB-Q SCH (09:00)
[2025-01-16] MEDS ORDERED: MAGNESIUM OXIDE 400 MG TABLET PO SCH (09:00)
--- NOTE | 2025-01-16 09:02 | NUR ---
IV CEFTRIAXONE INFUSION COMPLETE. IV SITE FLUSHED WITH 10 ML NORMAL SALINE AND IS SALINE LOCKED. IV DRESSING IS CLEAN, DRY, AND INTACT.IV PUMP CLEARED OF INTAKE FLUIDS. PATIENT IS LYING IN BED WITH HOB ELEVATED. SEIZURE PADS IN PLACE. PATIENT IS WATCHING TV. PATIENT STATED NO FURTHER NEEDS AT THIS TIME. CALL LIGHT AND PERSONAL BELONGINGS ARE WITHIN REACH.
--- NOTE | 2025-01-16 10:13 | NUR ---
PHYSICAL THERAPY IS WORKING WITH THE PATIENT AT THIS TIME.
--- NOTE | 2025-01-16 11:19 | NUR ---
PATIENT IS SITTING UPRIGHT IN THE CHAIR WITH BILATERAL LOWER EXTREMITIES ELEVATED. PATIENT WITH EYES OPEN AND RESPIRATIONS ARE EVEN AND UNLABORED. PATIENT IS WATCHING TV. CALL LIGHT AND PERSONAL BELONGINGS ARE WITHIN REACH.
--- NOTE | 2025-01-16 11:34 | NUR ---
INTO SEE PATIENT. STATES SHE FEELS MUCH BETTER. PT RECCOMENDING PT HOME HEALTH. WILL SEND ORDER AT TIME OF DISCHARGE.
[2025-01-16] MEDS ORDERED: PHARMACY RENAL DOSE ADJUSTMENT 1 DOSE MISC PO SCH (12:00)
--- NOTE | 2025-01-16 12:24 | NUR ---
PATIENT IS SITTING UPRIGHT IN THE CHAIR WITH THE BILATERAL LOWER EXTREMITIES ELEVATED. PATIENT IS EATING LUNCH AT THIS TIME. RESPIRATIONS ARE EVEN AND UNLABORED. TV IS ON. CALL LIGHT AND PERSONAL BELONGINGS ARE WITHIN REACH.
--- NOTE | 2025-01-16 13:20 | NUR ---
PATIENT IS SITTING IN THE CHAIR WITH BILATERAL LOWER EXTREMITIES ELEVATED. LUNCH TRAY IS SET UP IN FRONT OF THE PATIENT. TV IS ON AND THE CPOX IS AT BEDSIDE. PATIENT SON IS SITTING ON THE BED. PATIENT STATED NO FURTHER NEEDS AT THIS TIME. CALL LIGHT AND PERSONAL BELONGINGS ARE WITHIN REACH.
--- NOTE | 2025-01-16 13:55 | NUR ---
PATIENT AND SON EDUCATED ON HOW TO CLEAN AND CARE FOR SUPRAPUBIC CATHETER. PATIENT AND FAMILY EXPRESSED UNDERSTANDING. PATIETN SON PROVIDED WRITTEN INSTRUCTIONS ON HOW TO CARE FOR SUPRAPUBC. ALL QUESTIONS AND CONCERNS ADDRESSED. PATIENT AND FAMILY STATED NO FURTHER NEEDS AT THIS TIME. CALL LIGHT AND PERSONAL BELONGINGS ARE WITHIN REACH. JASE CONTRERAS IS IN THE ROOM UPON RN LEAVING THE ROOM.
--- NOTE | 2025-01-16 14:37 | NUR ---
NOTES SENT TO [facility]
--- NOTE | 2025-01-16 14:57 | NUR ---
1500 TEGRETOL ADMINISTERED PER THE EMAR. FOCUSED ASSESSMENT COMPLETE. PATIENT IS ALERT AND ORIENTED TIMES FOUR. PATIENT WITH NO COMPLAINTS OF NUMBNESS OR TINGLING. IV SITE FLUSHED WITH 10 ML NORMAL SALINE AND IS SALINE LOCKED. IV DRESSING IS CLEAN, DRY, AND INTACT. PATIENT IS SITTING IN THE CHAIR WITH BILATERAL LOWER EXTREMITIES ELEVATED. PATIENT IS WATCHING TV. CPOX AT BEDSIDE. PATIENT STATED NO FURTHER NEEDS AT THIS TIME. CALL LIGHT AND PERSONAL BELONGINGS ARE WITHIN REACH.
--- NOTE | 2025-01-16 15:36 | NUR ---
PATIENT IS SITTING IN THE CHAIR WITH BILATERAL LOWER EXTREMITIES ELEVATED. PATIENT WITH EYES OPEN AND RESPIRATIONS ARE EVEN AND UNLABORED. PATIENT IS WATCHING TV. PATIENT STATED NO FURTHER NEEDS AT THIS TIME. CALL LIGHT AND PERSONAL BELONGINGS ARE WITHIN REACH.
--- NOTE | 2025-01-16 16:01 | NUR ---
PATIENT IS SITTING IN THE CHAIR AND BILATERAL LOWER EXTREMITIES ARE ELEVATED. PATIENT IS WATCHING TV. RESPIRATIONS ARE EVEN AND UNLABORED. CALL LIGHT AND PERSONAL BELONGINGS ARE WITHIN REACH.
--- NOTE | 2025-01-16 17:09 | NUR ---
PATIENT IS SITTING UP IN THE CHAIR WITH BILATERAL LOWER EXTREMITIES ELEVATED. PATIENT IS WATCHING TV AND RESPIRATIONS ARE EVEN AND UNLABORED. PATIENT STATED NO NEEDS AT THIS TIME. CALL LIGHT AND PERSONAL BELONGINGS ARE WITHIN REACH.
--- NOTE | 2025-01-16 18:00 | NUR ---
PATIENT IS SITTING IN THE CHAIR WITH BILATERAL LOWER EXTREMITIES ELEVATED. PATIENT WITH EYES OPEN AND RESPIRATIONS ARE EVEN AND UNLABORED. TV IS ON. CPOX AT BEDSIDE. CALL LIGHT AND PERSONAL BELONGINGS ARE WITHIN REACH.
--- NOTE | 2025-01-16 19:32 | NUR ---
REPORT RECEIVED FROM DAYSHIFT RN. PATIENT RESTING IN BED, WATCHING TV. DENIES ANY NEEDS, CALL LIGHT IN REACH
--- NOTE | 2025-01-16 20:33 | NUR ---
PREFLIGHT MECHANIC OBTAINED VITALS AND I&O. HAGEN EMPTIED AND PT STATES NO NEEDS AT THIS TIME. CALL LIGHT WITHIN REACH.
--- NOTE | 2025-01-16 20:38 | NUR ---
AGILE JAVA DEVELOPER OBTAINED VITALS. NO NEW I&O AT THIS TIME. PT COMPLAINING OF HEARTBURN. RN NOTIFED. PT STATES NO FURTHER NEEDS AT THIS TIME. CALL LIGHT WITHIN REACH.
[2025-01-16] MEDS ORDERED: FLUOXETINE HCL 20 MG CAP PO SCH (21:00)
--- NOTE | 2025-01-16 21:29 | NUR ---
SCHEDULED MEDS ADMIN PER ORDER. PATIENT DECLINES ANY PAIN, CATHETER CARE COMPLETED, ASSESSMENT COMPLETED. PATIENT DECLINES ANY NEEDS. CALL LIGHT IN REACH
--- NOTE | 2025-01-16 21:36 | NUR ---
PATIENT HAS SEIZURE PADS IN PLACE, LIGHTS TURNED OFF FOR PATIENT TO REST PER REQUEST. DENIES NEEDS CALL LIGHT IN REACH
--- NOTE | 2025-01-16 22:41 | NUR ---
PATIENT RESTING IN BED, WATCHING TV. DENIES ANY NEEDS, DENIES PAIN. CALL LIGHT IN REACH.
--- NOTE | 2025-01-16 23:56 | NUR ---
RN CALLED TO BEDSIDE, PATIENT REPORTS SHE IS "FEELING WET" AND STATES THAT HER CATHETER IS LEAKING. UPON ASSESSMENT, PATIENT IS WET AROUND CATHETER SITE, PATIENT CLEANED, CATHETER ASSESSED. SMALL KINKS NOTED IN TUBING, DRAINING WELL TO HAGEN BAG AT BEDSIDE. BRIEF CHANGED WITH ASSISTANCE OF JASE POOL. PATIENT DECLINES OTHER NEEDS. EDUCATED TO LET RN KNOW IF SHE IS FEELING WET AGAIN. CALL LIGHT IN REACH.
[2025-01-17] VITALS (9 sets, daily range): BP systolic 108–113; BP diastolic 55–71
--- NOTE | 2025-01-17 03:11 | NUR ---
PATIENT RESTING WITH EYES CLOSED, RESP EVEN AND UNLABORED. NO NEEDS IDENTIFIED, CALL LIGHT IN REACH
--- NOTE | 2025-01-17 04:12 | NUR ---
PATIENT RESTING WITH EYES CLOSED, RESP EVEN AND UNLABORED. NO NEEDS IDENTIFIED, BED ALARM ON. CALL LIGHT IN REACH
[2025-01-17 05:17] LABS: BASOPHILS 0.8 % (0-2); EOSINOPHILS 4.5 % (0-6); HEMATOCRIT 38.7 % (35.0-50.0); HEMOGLOBIN 13.3 g/dL (12.0-18.0); LYMPHOCYTES 36.5 % (24-44); MCHC 34.5 g/dl (30-36); MONOCYTES 7.4 % (0-12); NEUTROPHILS 50.8 % (39-80); PLATELET COUNT 322 K/uL (140-440); RDW 13.3 (10.5-15.0)
[2025-01-17 05:35] LABS: ANION GAP 12.2 (7-21); BUN/CREATININE RATIO 29.85 (6.0-28.6); CALCIUM 8.7 mg/dL (8.5-10.1); CREATININE, SERUM 0.67 mg/dL (0.55-1.02); MAGNESIUM 2.1 mg/dL (1.8-2.4); POTASSIUM 4.2 mmol/L (3.5-5.1)
--- NOTE | 2025-01-17 06:02 | NUR ---
EHS ENGINEER OBTAINED VITALS AND I&O. CATH EMPTIED. PT STATES NO NEEDS AT THIS TIME. CALL LIGHT WITHIN REACH.
--- NOTE | 2025-01-17 06:58 | NUR ---
PATIENT RESTING WITH EYES CLOSED, RESP EVEN AND UNLABORED. NO NEEDS IDENTIFIED, CALL LIGHT IN REACH
--- NOTE | 2025-01-17 07:27 | NUR ---
REPORT RECEIVED FROM MANAGER FASHION RN NASEEM. PATIENT IS LYING IN BED WITH EYES CLOSED AND RESPIRATIONS ARE EVEN AND UNLABORED. SEIZURE PADS IN PLACE. CALL LIGHT AND PERSONAL BELONGINGS ARE WITHIN REACH.
[2025-01-17] MEDS ORDERED: POLYETHYLENE GLYCOL 3350 1 PACKET PO ONE (08:00)
--- NOTE | 2025-01-17 08:03 | NUR ---
0700 AND 0900 MEDICATIONS ADMINISTERED PER THE EMAR. PATIENT IS LYING IN BED WITH HOB ELEVATED. SEIZURE PADS IN PLACE. PATIENT PROVIDED FRESH ICE WATER BY CHARLES, STUDENT NURSE. ALSO ROUNDED AT THIS TIME. PATIENT STATED NO FURTHER NEEDS AT THIS TIME. CALL LIGHT AND PERSONAL BELONGINGS ARE WITHIN REACH.
--- NOTE | 2025-01-17 08:37 | NUR ---
CEFTRIAXONE DOSE COMPLETE. IV SITE FLUSHED BY CHARLES STUDENT NURSE. IV SITE IS SALINE LOCKED AND IV DRESSING IS CLEAN, DRY, AND INTACT. 0800 MIRALAX ADMINISTERED PER THE EMAR. IV PUMP CLEARED OF INTAKE FLUIDS. PATIENT REPOSITIONED SELF IN BED. SEIZURE PADS REMAIN IN PLACE. PATIENT STATED NO FURTHER NEEDS AT THIS TIME. CALL LIGHT AND PERSONAL BELONGINGS ARE WITHIN REACH.
--- NOTE | 2025-01-17 09:45 | NUR ---
PATIENT IS LYING IN BED WITH HOB ELEVATED. TRAPEZE BAR IN PLACE. SEIZURE PADS IN PLACE. FULL ASSESSMENT COMPLETE AND DOCUMENTED IN THE CHART. PT, OT, AND ST ORDERED. PATIENT IS ALERT AND ORIENTED TIMES FOUR. PATIENT REPORTED DYSPHAGIA AT BASELINE ON ADMISSION. CARDIAC WITH NORMAL S1 AND S2 ON AUSCULTATION. RADIAL AND PEDAL PULSES ARE STRONG BILATERALLY. CAPILLARY REFILL IN THE UPPER AND LOWER EXTREMITIES IS LESS THAN 3 SECONDS. NO EDEMA NOTED. SENSATION INTACT WITH NO COMPLAINTS OF NUMBNESS OR TINGLING. PATIENT IS ON ROOM AIR AND LUNG SOUNDS ARE CLEAR THROUGHOUT. PATIENT CPOX DISCONTINUED. PATIENT IS ON A REGULAR DIET WITH SOFT AND BITE SIZED TEXTURE. BOWEL TONES ARE ACTIVE IN ALL FOUR QUADRANTS. PATIENT LAST BM WAS 01/14/25. SUPRAPUBIC CATHETER IN PLACE WITH NO LEAKING NOTED. CATHETER CHANGED ON 01/15/25 IN THE ER. IV SITE IS CLEAN, DRY, AND INTACT. IV IS SALINE LOCKED. PATIENT RATED PAIN 8/10 IN THE LEFT SIDE OF THE MOUTH/JAW. SKIN INTACT. BREAKFAST TRAY REMAINS AT THE BEDSIDE. PATIENT STATED NO FURTHER NEEDS AT THIS TIME. CALL LIGHT AND PERSONAL BELONGINGS ARE WITHIN REACH.
--- NOTE | 2025-01-17 10:20 | NUR ---
PATIENT IS SITTING IN THE CHAIR WITH BILATERAL LOWER EXTREMITIES ELEVATED. PATIENT WITH EYES OPEN AND RESPIRATIONS ARE EVEN AND UNLABORED. PATIENT IS STARTING TO EAT HER BREAKFAST. TV IS ON. CALL LIGHT AND PERSONAL BELONGINGS ARE WITHIN REACH.
--- NOTE | 2025-01-17 11:30 | NUR ---
PATIENT RESTING WITH EYES CLOSED IN CHAIR, SHE WOKE WITH VERBAL STIMULI. SHE DENIES ANY NEEDS AT THIS TIME. LENORE IS IN FRONT OF HER, PERSONAL ITEMS AND CALL LIGHT WITHIN REACH.
--- NOTE | 2025-01-17 12:04 | NUR ---
UPDATE GIVEN TO PATIENTS CRISTY ALEGRIA AT THIS TIME. ALL QUESTIONS AND CONCERNS ADDRESSED. CALL ENDED.
--- NOTE | 2025-01-17 12:12 | NUR ---
PATIENT IS SITTING IN THE CHAIR WITH BILATERAL LOWER EXTREMITIES ELEVATED. PATIENT WITH EYES CLOSED AND RESPIRATIONS ARE EVEN AND UNLABORED. TV IS ON. CALL LIGHT AND PERSONAL BELONGINGS ARE EVEN AND UNLABORED.
--- NOTE | 2025-01-17 12:24 | NUR ---
DR MOSER NOTIFIED OF URINE CULTURE AND SENSITIVITY RESULTS. NO NEW ORDERS RECEIVED.
--- NOTE | 2025-01-17 13:21 | NUR ---
PATIENT IS SITTING IN THE CHAIR WITH BILATERAL LOWER EXTREMITIES ELEVATED. PATIENT WITH EYES CLOSED AND RESPIRATIONS ARE EVEN AND UNLABORED. TV IS ON. LUNCH TRAY IS ON THE BEDSIDE TABLE. CALL LIGHT AND PERSONAL BELONGINGS ARE WITHIN REACH.
--- NOTE | 2025-01-17 14:37 | NUR ---
PATIENT IS SITTING IN THE CHAIR WITH BILATERAL LOWER EXTREMITIES ELEVATED. PATIENT WITH EYES CLOSED AND RESPIRATIONS ARE EVEN AND UNLABORED. TV IS ON. CALL LIGHT AND PERSONAL BELONGINGS ARE WITHIN REACH.
--- NOTE | 2025-01-17 16:20 | NUR ---
PATIENT IS SITTING IN THE CHAIR WITH BILATERAL LOWER EXTREMITIES ELEVATED. PATIENT WITH NO COMPLAINTS OF PAIN AT THIS TIME. IV SITE FLUSHED WITH 10 ML NORMAL SALINE AND IS SALINE LOCKED. IV DRESSING IS CLEAN, DRY, AND INTACT. SUPRAPUBIC CATHETER CARE COMPLETE. PATIENT TOLERATED WELL. PATIENT STATED NO FURTHER NEEDS AT THIS TIME. CALL LIGHT AND PERSONAL BELONGINGS ARE WITHIN REACH.
--- NOTE | 2025-01-17 17:22 | NUR ---
PATIENT IS SITTING IN THE CHAIR WITH BILATERAL LOWER EXTREMITIES ELEVATED. PATIENT IS EATING DINNER. PATIENT IS ALSO WATCHING TV. CALL LIGHT AND PERSONAL BELONGINGS ARE WITHIN REACH.
--- NOTE | 2025-01-17 18:14 | NUR ---
PATIENT IS SITTING IN THE CHAIR WITH BILATERAL LOWER EXTREMITIES ELEVATED. PATIENT IS TALKING ON THE PHONE. DINNER TRAY IS SET UP IN FRONT OF THE PATIENT. TV IS ON. CALL LIGHT AND PERSONAL BELONGINGS ARE WITHIN REACH.
--- NOTE | 2025-01-17 19:20 | NUR ---
RECEIVED REPORT FROM DAY SHIFT RN. PATIENT IS RESTING IN RECLINER [place]ING TV. PATIENT DENIES ANY NEEDS. CALL LIGHT IN REACH.
--- NOTE | 2025-01-17 21:02 | NUR ---
PATIENTS VITALS TAKEN AND RECORDED. PATIENTS HAGEN EMPTIED AND HAGEN CARE COMPLETED. INTAKE AND OUTPUT RECORDED. PATIENTS ASSESMENT COMPLETED. PM MEDS GIVEN PER ORDER. PATIENT DENIES ANY PAIN OR NAUSEA. PATIENT MOVED FROM RECLINER TO BED A 1PA W/FWW. PATIENT IS NOW RESTING IN BED. PATIENT IS ON RA. PATIENT DENIES ANY FURTHER NEEDS. WARM BLANKET AND FRESH ICE WATER PROVIDED. PATIENT IS AAOX4. CALL LIGHT IN REACH.
--- NOTE | 2025-01-17 22:00 | NUR ---
PATIENT IS RESING IN BED WITH EYES CLOSED, RR 16. CALL LIGHT IN REACH. NAD NOTED.
--- NOTE | 2025-01-18 00:28 | NUR ---
PATIENT IS RESTING IN BED WITH EYES CLOSED, RR 16. CALL LIGHT IN REACH. NAD NOTED.
--- NOTE | 2025-01-18 02:12 | NUR ---
PATIENT IS RESTING IN BED WITH EYES CLOSED, RR 15. NAD NOTED. CALL LIGHT IN REACH.
--- NOTE | 2025-01-18 04:07 | NUR ---
PATIENT IS RESTING IN BED WITH EYES CLOSED, RR 16. CALL LIGHT IN REACH. NAD NOTED.
[2025-01-18 05:20] LABS: BASOPHILS 1.1 % (0-2); EOSINOPHILS 4.4 % (0-6); HEMATOCRIT 39.8 % (35.0-50.0); HEMOGLOBIN 13.8 g/dL (12.0-18.0); LYMPHOCYTES 36.5 % (24-44); MCH 31.3 (27-36); MCHC 34.6 g/dl (30-36); MCV 90.5 fl (81-99); MONOCYTES 9.5 % (0-12); NEUTROPHILS 48.5 % (39-80); PLATELET COUNT 351 K/uL (140-440); RDW 13.5 (10.5-15.0)
[2025-01-18 05:30] LABS: ANION GAP 11.7 (7-21); BUN/CREATININE RATIO 36.76 (6.0-28.6); CALCIUM 8.8 mg/dL (8.5-10.1); CREATININE, SERUM 0.68 mg/dL (0.55-1.02); MAGNESIUM 2.1 mg/dL (1.8-2.4); POTASSIUM 4.7 mmol/L (3.5-5.1)
[2025-01-18 06:18] VITALS: BP 101/57
--- NOTE | 2025-01-18 06:22 | NUR ---
PATIENTS VITALS TAKEN AND RECORDED. HAGEN EMPTIED. INTAKE AND OUTPUT RECORDED. PATIENTS AM MEDS GIVEN PER ORDER. PATIENT DENIES ANY FURTHER NEEDS. NO LEAKING NOTED AROUND CATH INSERTIION SITE. CALL LIGHT IN REACH.
--- NOTE | 2025-01-18 07:17 | NUR ---
REPORT RECEIVED FROM VERTICAL CONTOUR BAND SAW OPERATOR RN MIROSLAVA. PATIENT IS LYING IN BED WITH EYES CLOSED AND RESPIRATIONS ARE EVEN AND UNLABORED. SEIZURE PADS IN PLACE. CALL LIGHT AND PERSONAL BELONGINGS ARE WITHIN REACH.
[2025-01-18] MEDS ORDERED: MAGNESIUM CITRATE 300 ML BTL PO ONE ×2 (08:00→09:45)
--- NOTE | 2025-01-18 08:14 | NUR ---
HOURLY ROUNDING. BOARD HAS BEEN UPDATED AND CALL LIGHT HAS BEEN PLACED WITHIN REACH
--- NOTE | 2025-01-18 08:43 | NUR ---
PATIENT IS LYING IN BED WITH EYES CLOSED AND RESPIRATIONS ARE EVEN AND UNLABORED. SEIZURE PADS IN PLACE. CALL LIGHT AND PERSONAL BELONGINGS ARE WITHIN REACH.
--- NOTE | 2025-01-18 09:15 | NUR ---
0900 AND PRN TYLENOL ADMINISTERED PER THE EMAR. PATIENT WOKEN UP BY RN. PATIENT IS LYING IN BED WITH HOB ELEVATED. SEIZURE PADS IN PLACE. BREAKFAST TRAY AT BEDSIDE AND PATIENT MENTIONED WANTING TO WAIT SO SHE COULD WAKE UP AND THEN EAT. FULL ASSESSMENT COMPLETE AND DOCUMENTED IN THE CHART. PATIENT IS ALERT AND ORIENTED TIMES FOUR. DYSPHAGIA AT BASELINE. PT/OT/ST CONSULTED. CARDIAC WITH NORMAL S1 AND S2 ON AUSCULTATION. RADIAL AND PEDAL PULSES ARE STRONG BILATERALLY. CAPILLARY REFILL IN THE UPPER AND LOWER EXTREMITIES IS LESS THAN 3 SECONDS. NO EDEMA NOTED. SENSATION INTACT WITH NO COMPLAINTS OF NUMBNESS OR TINGLING. PATIENT IS ON ROOM AIR WITH LUNG SOUNDS CLEAR THROUGHOUT. PATIENT IS ON A REGULAR DIET WITH SOFT AND BITE SIZED TEXTURE. BOWEL TONES ARE ACTIVE IN ALL FOUR QUADRANTS. LAST BM 01/14/25. MAG CITRATE ADMINISTERED PER EMAR. SUPRAPUBIC CATHETER IN PLACE AND DRAINING YELLOW URINE. NO LEAKING NOTED. IV SITE FLUSHED WITH 10 ML NORMAL SALINE. IV ROCEPHIN IS INFUSING AT 200 ML/HR. IV DRESSING IS CLEAN, DRY, AND INTACT. PATIENT RATED PAIN 6/10 IN THE LEFT SIDE OF MOUTH AND JAW. TYLENOL ADMINISTERED PER THE EMAR. SKIN INTACT. PATIENT STATED NO FURTHER NEEDS AT THIS TIME. CALL LIGHT AND APERSONAL BELONGINGS ARE WITHIN REACH.
[2025-01-18 09:26] VITALS: BP 118/69
--- NOTE | 2025-01-18 10:01 | NUR ---
IV ROCEPHIN COMPLETE. IV FLUSHED WITH 10 ML NORMAL SALINE AND IS SALINE LOCKED. IV DRESSING IS CLEAN, DRY, AND INTACT. PATIENT REPOSITIONED IN BED WITH CHARLES STUDENT NURSE. PATIENT IS SAT UP AND EATING BREAKFAST. RESPIRATIONS ARE EVEN AND UNLABORED. TV IS ON. PATIENT STATED NO FURTHER NEEDS AT THIS TIME. CALL LIGHT AND PERSONAL BELONGINGS ARE WITHIN REACH.
[2025-01-18 10:21] VITALS: BP 118/69
--- NOTE | 2025-01-18 11:20 | NUR ---
STATED TO ONLY ADMINISTER HALF (150 ML) OF THE SECOND ORDER FOR MAGNESIUM CITRATE. ORDER VERIFIED WITH .
[2025-01-18] MEDS ORDERED: AMOX TR-K CLV1 EAC1 PO (11:21)
--- NOTE | 2025-01-18 12:15 | NUR ---
PATIENT IS LYING IN BED WITH HOB ELEVATED. PATIENT IS WATCHING TV. PATIENT WITH SEIZURE PADS IN PLACE. PATIENT WITH BREAKFAST TRAY STILL SET UP IN FRONT OF THE PATIENT. CALL LIGHT AND PERSONAL BELONGINGS ARE WITHIN REACH.
[2025-01-18 13:07] VITALS: BP 124/64
--- NOTE | 2025-01-19 08:08 | NUR ---
[facility] ORDERS SENT
== END 2025-01-18 13:25 | disposition home health service (06) | DRG 699 ==
LOC: ED 11:14 → MS 14:42
PROVIDERS: Emergency Medicine; ADMIT Student in an Organized Health Care Education/Training Program; ATTEND Student in an Organized Health Care Education/Training Program
DX: T83.510A Infection and inflammatory reaction due to cystostomy catheter, initial encounter (principal); N39.0 Urinary tract infection, site not specified; G35 Multiple sclerosis; R33.9 Retention of urine, unspecified; E03.9 Hypothyroidism, unspecified; R40.0 Somnolence; K59.09 Other constipation; Z66 Do not resuscitate; R13.10 Dysphagia, unspecified; B96.20 Unspecified Escherichia coli [E. coli] as the cause of diseases classified elsewhere; B96.89 Other specified bacterial agents as the cause of diseases classified elsewhere; Y84.6 Urinary catheterization as the cause of abnormal reaction of the patient, or of later complication, without mention of misadventure at the time of the procedure; Z90.89 Acquired absence of other organs; Z88.2 Allergy status to sulfonamides; Z88.8 Allergy status to other drugs, medicaments and biological substances; Z79.899 Other long term (current) drug therapy; Z79.890 Hormone replacement therapy; Z99.3 Dependence on wheelchair
CPT/HCPCS: 36415; 71045; 80048; 80053; 81001; 83605; 83735; 85025; 87040; 87088; 93005; 93010; 94762; 97161; 97165; 97530; 97535; A9270; J0696; J1650; J2405; J7030

== ENCOUNTER 2025-04-06 20:43 | Emergency (ER) | payer OTHER ==
[~2025-04-06] VITALS: Ht 152.4 cm; Wt 48.0 kg
[~2025-04-06 20:43] MED LIST changes: +ACID REDUCER20 MG PO; +AMOX TR-K CLV1 EAC1 PO; +CARBAMAZEPINE300 MG PO; +COLACE100 MG PO; +FLONASE ALLERG9.9 ML NAS; +IBU600 MG PO; +LEVOTHYROXINE50 MCG PO
[2025-04-06 21:13] LABS: BASOPHILS 0.6 % (0.1-1.2); EOSINOPHILS 1.9 % (0.7-5.8); HEMATOCRIT 40.8 % (34.1-44.9); HEMOGLOBIN 13.6 g/dL (11.2-15.7); LYMPHOCYTES 38.4 % (19.3-51.7); MCHC 33.3 g/dL (32.2-35.5); MCV 92.9 fL (79.4-94.8); MONOCYTES 5.8 % (4.7-12.5); NEUTROPHILS 51.7 % (34.0-71.1); PLATELET COUNT 335 K/uL (182-369); RBC 4.39 M/uL (3.93-5.22)
[2025-04-06 21:30] LABS: ALBUMIN 3.4 g/dL (3.4-5.0); ALBUMIN/GLOBULIN RATIO 0.94 (1.1-2.4); ALCOHOL, MEDICAL <3 ng/dL (<3); ALKALINE PHOSPHATASE 141 U/L (46-116); ALT (SGPT) 29 U/L (14-59); ANION GAP 13.9 (7-21); AST (SGOT) 21 U/L (15-37); BILIRUBIN, TOTAL 0.3 mg/dL (0.2-1.0); BUN/CREATININE RATIO 14.94 (6.0-28.6); CALCIUM 8.6 mg/dL (8.5-10.1); CARBON DIOXIDE 29 mmol/L (21-32); CHLORIDE 101 mmol/L (98-107); CREATININE, SERUM 0.87 mg/dL (0.55-1.02); GLOMERULAR FILTRATION RATE,EST 74 mL/min (>60); MAGNESIUM 2.1 mg/dL (1.8-2.4); POTASSIUM 3.9 mmol/L (3.5-5.1); TSH, 3RD GENERATION 2.878 uIU/mL (0.358-3.740); UREA NITROGEN 13 mg/dL (7-18)
[2025-04-06 22:32] LABS: BILIRUBIN, URINE NEGATIVE (negative); BLOOD/HGB, URINE MODERATE (Negative); KETONE, URINE NEGATIVE (Negative); LEUK ESTERASE, URINE MODERATE (negative); NITRITE, URINE POSITIVE (negative)
[2025-04-06 22:37] LABS: BACTERIA, URINE 3+ /hpf (negative); CASTS, URINE NONE SEEN \\lpf; COLLECTION TYPE, URINE CLEAN CATCH; CRYSTALS, URINE NONE SEEN (0-1+); EPITHELIAL CELLS, URINE SQUAMOUS 1+ /lpf (0-1+); REFLEX CULTURE, URINE Yes (No); WHITE BLOOD CELLS, URINE >50 /HPF (0-5)
[2025-04-06 22:49] LABS: AMPHETAMINES, URINE NEGATIVE (NEGATIVE); BARBITURATES, URINE NEGATIVE (NEGATIVE); BENZODIAZEPINE, URINE NEGATIVE (NEGATIVE); BUPRENORPHINE, URINE NEGATIVE (NEGATIVE); CANNABINOID, URINE NEGATIVE (NEGATIVE); COCAINE, URINE NEGATIVE (NEGATIVE); ECSTASY, URINE NEGATIVE (NEGATIVE); FENTANYL, URINE NEGATIVE (NEGATIVE); METHADONE, URINE NEGATIVE (NEGATIVE); OPIATES, URINE NEGATIVE (NEGATIVE); OXYCODONE, URINE NEGATIVE (NEGATIVE); PHENCYCLIDINE, URINE NEGATIVE (NEGATIVE)
[2025-04-06] MEDS ORDERED: CEFTRIAXONE SODIUM 2 GM in SODIUM CHLORIDE 0.9% 100 ML IV ONE (23:15)
[2025-04-06] MEDS ORDERED: CEFDINIR300 MG PO (23:20)
[2025-04-06] MEDS ORDERED: ONDANSETRON 4 MG HOME.PACK SL ONE (23:30)
[2025-04-06] MEDS ORDERED: ondansetron HCL 4 MG/2 ML VIAL IV ONE (23:45)
[2025-04-07 00:51] VITALS: BP 134/67
== END 2025-04-07 00:53 | disposition home or self-care (01) ==
LOC: ED 20:43
PROVIDERS: Family Medicine
DX: N39.0 Urinary tract infection, site not specified (principal); Z79.899 Other long term (current) drug therapy; Z79.51 Long term (current) use of inhaled steroids; Z88.2 Allergy status to sulfonamides; Z88.8 Allergy status to other drugs, medicaments and biological substances
CPT/HCPCS: 36415; 51702; 80053; 80307; 81001; 82140; 83735; 84443; 85025; 87088; 87186; 99285-25; A9270; G0480; J0696; J2405